=== PATIENT | male | born 1960 | race Caucasian/White ===

== ENCOUNTER 2019-05-09 11:19 | Inpatient (IN) | payer BC, MEDICARE ==
[~2019-05-09] VITALS: Ht 198.1 cm; Wt 163.6 kg
[~2019-05-09 11:19] MED LIST: BUSP30TA3; COU5T PO; FLUT16SP2 NS; GABA-338 PO; LAMO5TAB3 PO; OMEP-84 PO; QUET-1 PO; RISP1TAB3; SIMV5TAB58 PO; TRAM300T23; TRAZ-219
[2019-05-09] MEDS ORDERED: CefTRIAXone 2gm/D5W 50ml 50 ML IV ONE (11:55)
[2019-05-09] MEDS ORDERED: normal saline 1000ML IV soln IV ONE (11:55)
[2019-05-09 12:12] LABS: BASOPHILS # (AUTO) 0.1 X10'3 (0-0.2); BASOPHILS % (AUTO) 0.3 % (0-1); EOSINOPHILS # (AUTO) 0.1 X10'3 (0-0.9); EOSINOPHILS % (AUTO) 0.4 % (0-6); HEMATOCRIT 36.3 % (42.0-52.0); HEMOGLOBIN 12.1 g/dl (14.0-17.9); LYMPHOCYTES # (AUTO) 0.7 X10'3 (1.1-4.8); LYMPHOCYTES % (AUTO) 4.8 % (21-51); MEAN CORPUSCULAR HEMOGLOBIN 30.8 PG (27.0-31.0); MEAN CORPUSCULAR HGB CONC 33.2 g/dL (33.0-36.5); MEAN CORPUSCULAR VOLUME 92.8 FL (78-98); MEAN PLATELET VOLUME 7.5 FL (7.4-10.4); MONOCYTES # (AUTO) 1.4 X10'3 (0-0.9); MONOCYTES % (AUTO) 9.2 % (2-12); NEUTROPHILS # (AUTO) 12.6 X10'3 (1.8-7.7); NEUTROPHILS % (AUTO) 85.3 % (42-75); PLATELET COUNT 277 X10'3 (140-440); RED BLOOD COUNT 3.91 X10'6 (4.70-6.10); RED CELL DISTRIBUTION WIDTH 13.8 % (11.5-14.5); WHITE BLOOD COUNT 14.8 X10'3 (4.5-11.0)
[2019-05-09 12:17] LABS: PARTIAL THROMBOPLASTIN TIME 34 SECONDS (22-32)
[2019-05-09 12:21] LABS: LACTIC SEPSIS 1.5 MMOL/L (0.4-2.0)
[2019-05-09 12:29] LABS: ALANINE AMINOTRANSFERASE 23 U/L (12-78); ALBUMIN 2.7 G/DL (3.4-5.0); ALBUMIN/GLOBULIN RATIO 0.6 (1.1-1.5); ALKALINE PHOSPHATASE 118 IU/L (46-116); ANION GAP 10 (8-16); ASPARTATE AMINO TRANSFERASE 25 U/L (10-37); BILIRUBIN,TOTAL 1.3 MG/DL (0.1-1.0); BLOOD UREA NITROGEN 23 MG/DL (7-18); BUN/CREATININE RATIO 7.3 (5.4-32.0); CALCIUM 8.8 MG/DL (8.5-10.1); CHLORIDE 102 MMOL/L (99-107); CREATININE 3.15 MG/DL (0.60-1.10); ETHANOL < 0.010 GM/DL (0.0-0.010); GLUCOSE 106 MG/DL (70-104); MAGNESIUM 2.3 MG/DL (1.5-2.4); SODIUM 137 MMOL/L (135-145); TOTAL CARBON DIOXIDE 25.3 MMOL/L (24-32); TROPONIN I < 0.04 NG/ML (0.0-0.05); eGFR 20 ML/MIN
[2019-05-09 12:40] LABS: ABG BASE EXCESS -2.7 mmol/L (-2.0-3.0); ABG HCO3 22.1 mmol/L (22.0-26.0); ABG OXYGEN SATURATION 96.3 % (95-98); ABG PCO2 (T) 38.3 mmHg (35.0-45.0); ABG PH (T) 7.379 (7.350-7.450); ABG PO2 (T) 89.3 mmHg (83-108); FCOHb 1.4 % (0.5-1.5); TOTAL HEMOGLOBIN 11.5 G/dl (14.0-17.9)
--- NOTE | 2019-05-09 13:27 | NUR ---
FIRM STOOL SAMPLE COLLECTED AND SENT TO LAB.
[2019-05-09] MEDS ORDERED: normal saline 1000ML IV soln IVB ONE (13:45)
--- NOTE | 2019-05-09 13:48 | NUR ---
PT TAKEN TO CT VIA GURNEY BY TECH.
--- NOTE | 2019-05-09 14:38 | NUR ---
PT HAS LARGE FORMED BM. CHANGE BEDDING. PT'S ARRIVES AT BEDSIDE AND TALKS TO DR SAMANO.
[2019-05-09] MEDS ORDERED: magnesium hydroxide 30ml (MOM) UD suspension PO PRN (14:40)
[2019-05-09] MEDS ORDERED: ondansetron/PF 4mg/2ml inj IV PRN (14:40)
[2019-05-09] MEDS ORDERED: mag hydrox/Alum hydrox/simeth 30ml oral suspension PO PRN (14:40)
[2019-05-09] MEDS ORDERED: acetaminophen 325mg tablet PO PRN ×2 (14:40)
[2019-05-09] MEDS ORDERED: LINA145C PO (15:10)
[2019-05-09] MEDS ORDERED: PANT40TA4 PO (15:10)
[2019-05-09] MEDS ORDERED: NALO25TA PO (15:10)
[2019-05-09] MEDS ORDERED: TRAM50TA2 PO (15:10)
[2019-05-09] MEDS ORDERED: OMEP40CA13 PO (15:10)
[2019-05-09] MEDS ORDERED: QUET-1 PO (15:10)
[2019-05-09] MEDS ORDERED: HYDR50TA65 PO (15:10)
[2019-05-09] MEDS ORDERED: APIX2.5T PO (15:10)
[2019-05-09] MEDS ORDERED: BUSP10TA11 PO (15:10)
[2019-05-09] MEDS ORDERED: LORA1TAB PO (15:10)
[2019-05-09] MEDS ORDERED: LEVO500T2 PO (15:10)
[2019-05-09] MEDS ORDERED: LAMO200T31 PO (15:10)
[2019-05-09] MEDS ORDERED: MIRT15TA PO (15:10)
[2019-05-09] MEDS ORDERED: MOME45CR3 TOP (15:10)
[2019-05-09] MEDS ORDERED: CELE-193 PO (15:10)
[2019-05-09] MEDS ORDERED: ENAL2.5T40 PO (15:10)
[2019-05-09 15:19] LABS: CLARITY,URINE SLIGHTLY CLOUDY (Clear); COLOR,URINE AMBER (Yellow); GLUCOSE, URINE NEGATIVE (Neg); KETONES,URINE NEGATIVE (Neg); LEUKOCYTE ESTERASE ,URINE NEGATIVE (Neg); NITRITES, URINE NEGATIVE (Neg); OCCULT BLOOD,URINE MODERATE (Neg); PH,URINE 7.5 (4.8-8.0); PROTEIN,URINE TRACE mg/dl (Neg); UA COLLECTION TYPE FOLEY CATH
[2019-05-09 15:26] LABS: URINE AMPHETAMINE SCREEN NEGATIVE (Neg); URINE BARBITUATE SCREEN NEGATIVE (Neg); URINE BENZODIAZEPINES SCREEN POSITIVE (Neg); URINE CANNABINOID SCREEN NEGATIVE (Neg); URINE COCAINE SCREEN NEGATIVE (Neg); URINE METHADONE SCREEN NEGATIVE (Neg); URINE OPIATE SCREEN POSITIVE (Neg); URINE PHENCYCLIDINE SCREEN NEGATIVE (Neg)
[2019-05-09 15:37] LABS: COARSE GRANULAR CAST 0-3 /LPF (NEGATIVE); HYALINE CASTS 0-3 /LPF (NEGATIVE); MUCUS STRANDS MANY /LPF (Neg); SQUAMOUS EPITHELIAL CELL,UR FEW /LPF (FEW); TRANSITIONAL EPI CELLS,URINE FEW /HPF
[2019-05-09 15:38] LABS: BACTERIA,URINE NONE SEEN /HPF (Neg); WBC,URINE 0-4 /HPF (0-4)
[2019-05-09 15:39] LABS: CAL OXALATE CRYSTALS 4+ /HPF (NEGATIVE)
[2019-05-09] MEDS ORDERED: BUSP15TA3 PO (15:48)
[2019-05-09] MEDS ORDERED: HYDR-3686 PO (15:48)
[2019-05-09] MEDS ORDERED: ENAL5TAB PO (15:48)
[2019-05-09] MEDS ORDERED: LAMO200T PO (15:48)
[2019-05-09 16:15] VITALS: BP 120/65
--- NOTE | 2019-05-09 16:15 | NUR ---
Patient in room PCU 3016. I have received report from Gina BASSETT and had the opportunity to ask questions and assume patient care.
--- NOTE | 2019-05-09 16:15 | NUR ---
Pt arrived to unit from ED via gurney. pt AOx4, vitals stable.
[2019-05-09] MEDS ORDERED: traMADol 50MG tablet PO PRN (16:25)
[2019-05-09] MEDS: normal saline 1000ml 1,000 ML IV SCH (16:25)
--- NOTE | 2019-05-09 18:00 | NUR ---
Problems reprioritized. Patient report given, questions answered & plan of care reviewed with Kristie BASSETT.
--- NOTE | 2019-05-09 18:00 | NUR ---
Patient in room PCU 3016. I have received report from Gabriel BASSETT and had the opportunity to ask questions and assume patient care.
--- NOTE | 2019-05-09 18:04 | NUR ---
I agree with all of Nadya BASSETT(Orientee's) charting
--- NOTE | 2019-05-09 18:22 | NUR ---
Problems reprioritized. Patient report given, questions answered & plan of care reviewed with DANYELLE Villagran.
[2019-05-09 19:00] VITALS: BP 90/44
[2019-05-09] MEDS: lamoTRIgine 100mg tablet PO SCH (19:33)
[2019-05-09] MEDS: apixaban 2.5mg tablet PO SCH (19:33)
[2019-05-09] MEDS: busPIRone 15mg tablet PO SCH (19:33)
[2019-05-09] MEDS ORDERED: heparin, porcine 5000 units/ml vial SQ SCH (20:00)
[2019-05-09] MEDS: mirtazapine 15mg tablet PO SCH (20:28)
[2019-05-09 23:00] VITALS: BP_SYST 0; BP_SYST 77; BP_SYST 90; BP_DIAS 0; BP_DIAS 46; BP_DIAS 49
[2019-05-09 23:30] VITALS: BP 124/49
[2019-05-09] MEDS: morphine 2 MG/ML inj. syringe IV PRN (23:31)
--- NOTE | 2019-05-10 00:32 | NUR ---
POSITIVE ORTHOSTATIC MD Shirley notified and ordered to not get him out of bed, or the side of the bed, and no more orthostatic blood pressures. I also mentioned low urine output, but Casper mentioned that "he's probably just really dry". will continue to monitor.
[2019-05-10] MEDS: normal saline 1000ml 1,000 ML IV SCH ×3 (00:36→18:37)
[2019-05-10 03:00] VITALS: BP 98/52
[2019-05-10 05:59] LABS: BASOPHILS % (AUTO) 0.3 % (0-1); EOSINOPHILS # (AUTO) 0.1 X10'3 (0-0.9); EOSINOPHILS % (AUTO) 1.6 % (0-6); HEMATOCRIT 30.9 % (42.0-52.0); HEMOGLOBIN 10.5 g/dl (14.0-17.9); LYMPHOCYTES # (AUTO) 1.2 X10'3 (1.1-4.8); LYMPHOCYTES % (AUTO) 14.1 % (21-51); MEAN CORPUSCULAR HEMOGLOBIN 31.7 PG (27.0-31.0); MEAN CORPUSCULAR HGB CONC 33.9 g/dL (33.0-36.5); MEAN CORPUSCULAR VOLUME 93.4 FL (78-98); MEAN PLATELET VOLUME 7.6 FL (7.4-10.4); MONOCYTES # (AUTO) 0.8 X10'3 (0-0.9); MONOCYTES % (AUTO) 9.1 % (2-12); NEUTROPHILS # (AUTO) 6.3 X10'3 (1.8-7.7); NEUTROPHILS % (AUTO) 74.9 % (42-75); PLATELET COUNT 181 X10'3 (140-440); RED BLOOD COUNT 3.31 X10'6 (4.70-6.10); RED CELL DISTRIBUTION WIDTH 13.7 % (11.5-14.5); WHITE BLOOD COUNT 8.4 X10'3 (4.5-11.0)
[2019-05-10 06:00] VITALS: BP 112/61
--- NOTE | 2019-05-10 06:00 | NUR ---
Patient in room PCU 3016. I have received report from Kristie BASSETT and had the opportunity to ask questions and assume patient care.
[2019-05-10 06:17] LABS: ANION GAP 9 (8-16); BLOOD UREA NITROGEN 23 MG/DL (7-18); CALCIUM 8.5 MG/DL (8.5-10.1); CHLORIDE 110 MMOL/L (99-107); CREATININE 1.91 MG/DL (0.60-1.10); GLUCOSE 83 MG/DL (70-104); POTASSIUM 3.9 MMOL/L (3.5-5.1); SODIUM 142 MMOL/L (135-145); TOTAL CARBON DIOXIDE 23.4 MMOL/L (24-32); eGFR 36 ML/MIN
--- NOTE | 2019-05-10 06:21 | NUR ---
Problems reprioritized. Patient report given, questions answered & plan of care reviewed with Gabriel BASSETT.
--- NOTE | 2019-05-10 06:30 | NUR ---
Patient in room PCU 3016a. I have received report from DANYELLE Villagran and had the opportunity to ask questions and assume patient care. Pt alert and awake in bed at this time. All needs met.
[2019-05-10] MEDS: morphine 2 MG/ML inj. syringe IV PRN (06:59)
[2019-05-10] MEDS: lamoTRIgine 100mg tablet PO SCH ×2 (07:46→21:11)
[2019-05-10] MEDS: LORazepam 1 MG tablet PO SCH (07:46)
[2019-05-10] MEDS: quetiapine 100mg tablet PO SCH (07:47)
[2019-05-10] MEDS: busPIRone 15mg tablet PO SCH ×2 (07:47→21:11)
[2019-05-10] MEDS: pantoprazole 40mg Tablet.DR PO SCH (07:47)
[2019-05-10] MEDS: apixaban 2.5mg tablet PO SCH ×2 (07:47→21:11)
[2019-05-10] MEDS ORDERED: NALOXEGOL OXALATE 25 MG PO SCH (08:00)
[2019-05-10] MEDS ORDERED: LINACLOTIDE 145 MCG PO SCH (08:00)
[2019-05-10] MEDS ORDERED: gabapentin 300mg capsule PO ONE (09:15)
--- NOTE | 2019-05-10 09:20 | NUR ---
Paged Dr. Jerez: PAGER ID: [phone] MESSAGE: RE [id number] Valente Blas. New order for [place] 5/325mg and 10/325mg order needs clarification on direction. Thank you. Nadya ariza [phone]
[2019-05-10] MEDS: HYDROcodone/acetaminophen 10/325mg tab PO PRN (09:36)
[2019-05-10 11:00] VITALS: BP 90/45
[2019-05-10] MEDS: HYDROcodone/acetaminophen 5mg/325mg tablet PO PRN ×3 (14:13→23:52)
--- NOTE | 2019-05-10 14:37 | NUR ---
Page sent to Dr Jerez to reconcile medications. PAGER ID: [phone] MESSAGE: re [id number] Valente Blas. Medications Movantik and Linzess on emar, are pts own medication. Pt and family do not wish to continue in the hospital, can you please D/C? Thank you Nadya Vaughan [phone]
[2019-05-10 15:00] VITALS: BP 104/52
[2019-05-10 18:00] VITALS: BP 117/59
--- NOTE | 2019-05-10 18:00 | NUR ---
Problems reprioritized. Patient report given, questions answered & plan of care reviewed with Danielle BASSETT
--- NOTE | 2019-05-10 18:05 | NUR ---
Patient in room PCU 3016. I have received report from DANYELLE Covington and had the opportunity to ask questions and assume patient care.
--- NOTE | 2019-05-10 18:28 | NUR ---
Problems reprioritized. Patient report given, questions answered & plan of care reviewed with DANYELLE Santos.
--- NOTE | 2019-05-10 18:40 | NUR ---
Catrina Covington RN's charting reviewed. I agree with charting.
[2019-05-10] MEDS: gabapentin 300mg capsule PO SCH (21:10)
[2019-05-10] MEDS: amitriptyline 25mg tablet PO SCH (21:11)
[2019-05-10] MEDS: mirtazapine 15mg tablet PO SCH (21:11)
[2019-05-10 22:00] VITALS: BP 126/60
[2019-05-11 02:00] VITALS: BP 110/64
[2019-05-11] MEDS: HYDROcodone/acetaminophen 5mg/325mg tablet PO PRN (04:03)
[2019-05-11] MEDS: normal saline 1000ml 1,000 ML IV SCH ×2 (04:03→13:59)
[2019-05-11 06:00] VITALS: BP 143/78
--- NOTE | 2019-05-11 06:06 | NUR ---
Problems reprioritized. Patient report given, questions answered & plan of care reviewed with DANYELLE Francis.
[2019-05-11 06:10] LABS: BASOPHILS % (AUTO) 0.7 % (0-1); EOSINOPHILS # (AUTO) 0.1 X10'3 (0-0.9); HEMATOCRIT 29.3 % (42.0-52.0); HEMOGLOBIN 9.8 g/dl (14.0-17.9); LYMPHOCYTES # (AUTO) 1.1 X10'3 (1.1-4.8); LYMPHOCYTES % (AUTO) 19.4 % (21-51); MEAN CORPUSCULAR HGB CONC 33.6 g/dL (33.0-36.5); MEAN CORPUSCULAR VOLUME 92.2 FL (78-98); MEAN PLATELET VOLUME 8.2 FL (7.4-10.4); MONOCYTES # (AUTO) 0.5 X10'3 (0-0.9); MONOCYTES % (AUTO) 8.2 % (2-12); NEUTROPHILS % (AUTO) 69.7 % (42-75); PLATELET COUNT 187 X10'3 (140-440); RED BLOOD COUNT 3.17 X10'6 (4.70-6.10); RED CELL DISTRIBUTION WIDTH 13.7 % (11.5-14.5); WHITE BLOOD COUNT 5.7 X10'3 (4.5-11.0)
--- NOTE | 2019-05-11 06:10 | NUR ---
[place]rientee documentation: I have reviewed and agree with all interventions, assessments performed and documented by Mira BASSETT. Medication Administration: For this medication-pass time frame, all medication were reviewed, dispensed, administered and documented per hospital policy.
--- NOTE | 2019-05-11 06:15 | NUR ---
Patient in room PCU 3016. I have received report from Danielle LINDQUIST and Mira Lindquist and had the opportunity to ask questions and assume patient care.
[2019-05-11 06:18] LABS: ANION GAP 10 (8-16); BLOOD UREA NITROGEN 17 MG/DL (7-18); CALCIUM 7.9 MG/DL (8.5-10.1); CHLORIDE 112 MMOL/L (99-107); CREATININE 1.31 MG/DL (0.60-1.10); GLUCOSE 81 MG/DL (70-104); POTASSIUM 3.6 MMOL/L (3.5-5.1); SODIUM 145 MMOL/L (135-145); TOTAL CARBON DIOXIDE 23.5 MMOL/L (24-32); eGFR 56 ML/MIN
[2019-05-11] MEDS: LORazepam 1 MG tablet PO SCH (07:30)
[2019-05-11] MEDS: lamoTRIgine 100mg tablet PO SCH ×2 (07:30→19:40)
[2019-05-11] MEDS: gabapentin 300mg capsule PO SCH ×2 (07:30→19:40)
[2019-05-11] MEDS: apixaban 2.5mg tablet PO SCH ×2 (07:30→19:40)
[2019-05-11] MEDS: pantoprazole 40mg Tablet.DR PO SCH (07:30)
--- NOTE | 2019-05-11 07:30 | NUR ---
education given to patient on pain med regimen trying to find a solution for his constant chronic pain he has he is asking me to talk to MD about increasing his pain meds I explained to him he is getting very strong pain meds and he probably wont increase the amount or frequency anything more than what he is getting might not be safe.
[2019-05-11] MEDS: HYDROcodone/acetaminophen 10/325mg tab PO PRN ×4 (07:31→19:41)
[2019-05-11] MEDS: quetiapine 100mg tablet PO SCH (07:31)
[2019-05-11] MEDS: morphine 2 MG/ML inj. syringe IV PRN ×2 (07:32→11:36)
[2019-05-11] MEDS: busPIRone 15mg tablet PO SCH ×2 (07:33→19:40)
--- NOTE | 2019-05-11 08:00 | NUR ---
at bedside she seems very overwhelmed and distraught she is very concerned on how she will care for him at home I contacted case management and asked if they could go talk with her and talk about her options for him after discharge
[2019-05-11 11:00] VITALS: BP 146/68
--- NOTE | 2019-05-11 13:00 | NUR ---
break nurse took critical per RN he paged the MD telling him about the positive blood cultures
--- NOTE | 2019-05-11 13:07 | NUR ---
PAGER ID: [phone] MESSAGE: KATE [id number] Valente Orourkemanuela: + blood culture drawn 05/09 from IV start, in aerobic bottle, + at 48 hrs; Gram + cocci in clusters. DANYELLE Pulido Ext [id number]
--- NOTE | 2019-05-11 14:00 | NUR ---
pt napping no s/s of distress will continue to monitor
[2019-05-11 15:00] VITALS: BP 165/79
--- NOTE | 2019-05-11 15:43 | NUR ---
I explained to the patient and is and tried educating him on trying to find alternative methods of treating pain other than pharmacologic approached he wants both the morphine and the Mumford and Neurontin regularly I explained that is not a reasonable approach and that I am not calling the doctor to ask for an increase in the pain medicine because there are not many more options then what he is getting in terms of higher dosages MD Jerez is aware and wrote in his dictation that the patient has excessive uncontrolled Neuropathy pain and when the MD came by this morning the patient and his expressed the same concerns he is expressing now.
[2019-05-11] MEDS ORDERED: morphine 4 MG/ML inj SYRINge IV PRN (17:20)
[2019-05-11] MEDS ORDERED: morphine 2 MG/ML inj. syringe IV PRN (17:20)
[2019-05-11] MEDS ORDERED: fluticasone nasal spray 16GM bottle NS PRN (17:20)
[2019-05-11] MEDS ORDERED: oxymetazoline 15 ML nasal spray NS PRN (17:20)
--- NOTE | 2019-05-11 17:21 | NUR ---
called Rusu patient is requesting Flonase and Afrin at night and addressed patients pain issue he increased the amount of breakthrough pain medicine
[2019-05-11 19:00] VITALS: BP 133/63
[2019-05-11] MEDS: mirtazapine 15mg tablet PO SCH (20:46)
[2019-05-11] MEDS: amitriptyline 25mg tablet PO SCH (20:46)
[2019-05-11 23:00] VITALS: BP 113/58
[2019-05-12] MEDS: normal saline 1000ml 1,000 ML IV SCH ×3 (02:41→21:09)
[2019-05-12 03:00] VITALS: BP 91/64
[2019-05-12 05:14] LABS: BASOPHILS % (AUTO) 0.5 % (0-1); EOSINOPHILS # (AUTO) 0.1 X10'3 (0-0.9); EOSINOPHILS % (AUTO) 1.3 % (0-6); HEMATOCRIT 32.1 % (42.0-52.0); HEMOGLOBIN 10.9 g/dl (14.0-17.9); LYMPHOCYTES # (AUTO) 0.9 X10'3 (1.1-4.8); LYMPHOCYTES % (AUTO) 14.4 % (21-51); MEAN CORPUSCULAR HEMOGLOBIN 31.2 PG (27.0-31.0); MEAN CORPUSCULAR HGB CONC 33.9 g/dL (33.0-36.5); MEAN CORPUSCULAR VOLUME 92.1 FL (78-98); MEAN PLATELET VOLUME 7.6 FL (7.4-10.4); MONOCYTES # (AUTO) 0.6 X10'3 (0-0.9); MONOCYTES % (AUTO) 9.2 % (2-12); NEUTROPHILS # (AUTO) 4.8 X10'3 (1.8-7.7); NEUTROPHILS % (AUTO) 74.6 % (42-75); PLATELET COUNT 221 X10'3 (140-440); RED BLOOD COUNT 3.49 X10'6 (4.70-6.10); RED CELL DISTRIBUTION WIDTH 13.6 % (11.5-14.5); WHITE BLOOD COUNT 6.4 X10'3 (4.5-11.0)
[2019-05-12 05:46] LABS: ALBUMIN 2.3 G/DL (3.4-5.0); ANION GAP 9 (8-16); BLOOD UREA NITROGEN 10 MG/DL (7-18); BUN/CREATININE RATIO 8.8 (5.4-32.0); CALCIUM 8.2 MG/DL (8.5-10.1); CHLORIDE 112 MMOL/L (99-107); CREATININE 1.14 MG/DL (0.60-1.10); GLUCOSE 89 MG/DL (70-104); SODIUM 146 MMOL/L (135-145); TOTAL CARBON DIOXIDE 25.3 MMOL/L (24-32); eGFR 66 ML/MIN
[2019-05-12 06:00] VITALS: BP 120/71
--- NOTE | 2019-05-12 06:14 | NUR ---
Problems reprioritized. Patient report given, questions answered & plan of care reviewed with Maryanne BASSETT.
--- NOTE | 2019-05-12 06:40 | NUR ---
Patient in room PCU 3016. I have received report from Barbara BASSETT and had the opportunity to ask questions and assume patient care.
[2019-05-12] MEDS: apixaban 2.5mg tablet PO SCH ×2 (08:00→19:52)
--- NOTE | 2019-05-12 08:30 | NUR ---
PAGER ID: [phone] MESSAGE: [id number] Arley Blas. Episode of mihaela blood in stool this AM. No c/o abd/rectal pain. Holding eliquis. Just an FYI! Fredi [facility] [phone]
[2019-05-12] MEDS: gabapentin 300mg capsule PO SCH ×2 (08:41→19:52)
[2019-05-12] MEDS: busPIRone 15mg tablet PO SCH ×2 (08:41→19:49)
[2019-05-12] MEDS: pantoprazole 40mg Tablet.DR PO SCH (08:41)
[2019-05-12] MEDS: quetiapine 100mg tablet PO SCH (08:41)
[2019-05-12] MEDS: lamoTRIgine 100mg tablet PO SCH ×2 (08:42→19:51)
[2019-05-12] MEDS: LORazepam 1 MG tablet PO SCH (08:42)
[2019-05-12] MEDS ORDERED: GABA300C PO (10:10)
[2019-05-12] MEDS ORDERED: DESV50TA PO (10:51)
[2019-05-12 11:00] VITALS: BP 115/63
[2019-05-12 11:36] LABS: HEMATOCRIT 31.2 % (42.0-52.0); HEMOGLOBIN 10.5 g/dl (14.0-17.9); MEAN CORPUSCULAR HGB CONC 33.6 g/dL (33.0-36.5); MEAN CORPUSCULAR VOLUME 92.5 FL (78-98); MEAN PLATELET VOLUME 7.5 FL (7.4-10.4); PLATELET COUNT 217 X10'3 (140-440); RED BLOOD COUNT 3.37 X10'6 (4.70-6.10); RED CELL DISTRIBUTION WIDTH 13.8 % (11.5-14.5); WHITE BLOOD COUNT 6.8 X10'3 (4.5-11.0)
[2019-05-12] MEDS: HYDROcodone/acetaminophen 10/325mg tab PO PRN ×2 (13:21→19:51)
[2019-05-12 15:00] VITALS: BP 144/86
[2019-05-12 18:00] VITALS: BP 143/87
--- NOTE | 2019-05-12 18:10 | NUR ---
Problems reprioritized. Patient report given, questions answered & plan of care reviewed with Margaret RN, Marcia RN, and Student.
--- NOTE | 2019-05-12 18:21 | NUR ---
Patient in room PCU 3016. I have received report from DANYELLE Elliott and had the opportunity to ask questions and assume patient care.
[2019-05-12] MEDS: amitriptyline 25mg tablet PO SCH (21:10)
[2019-05-12] MEDS: mirtazapine 15mg tablet PO SCH (21:11)
[2019-05-12 22:00] VITALS: BP 106/61
[2019-05-13 02:00] VITALS: BP 106/76
--- NOTE | 2019-05-13 05:16 | NUR ---
Student Medication Administration: For this medication-pass time frame, all medication were reviewed, dispensed, administered and documented per hospital policy by Asha ROY. Student documentation: I have reviewed and agree with all interventions, assessments performed and documented by Asha ROY.
--- NOTE | 2019-05-13 05:17 | NUR ---
[place] Medication Administration: For this medication-pass time frame, all medication were reviewed, dispensed, administered and documented per hospital policy by Marcia BASSETT. [place]ee documentation: I have reviewed and agree with all interventions, assessments performed and documented by Marcia BASSETT.
[2019-05-13 06:00] VITALS: BP 150/87
[2019-05-13 06:17] LABS: ALBUMIN 2.2 G/DL (3.4-5.0); ANION GAP 8 (8-16); BASOPHILS % (AUTO) 0.6 % (0-1); BLOOD UREA NITROGEN 7 MG/DL (7-18); BUN/CREATININE RATIO 7.1 (5.4-32.0); CALCIUM 8.2 MG/DL (8.5-10.1); CHLORIDE 112 MMOL/L (99-107); CREATININE 0.98 MG/DL (0.60-1.10); EOSINOPHILS # (AUTO) 0.1 X10'3 (0-0.9); EOSINOPHILS % (AUTO) 1.8 % (0-6); GLUCOSE 87 MG/DL (70-104); HEMATOCRIT 30.2 % (42.0-52.0); HEMOGLOBIN 10.4 g/dl (14.0-17.9); LYMPHOCYTES # (AUTO) 0.8 X10'3 (1.1-4.8); LYMPHOCYTES % (AUTO) 17.9 % (21-51); MEAN CORPUSCULAR HEMOGLOBIN 31.8 PG (27.0-31.0); MEAN CORPUSCULAR HGB CONC 34.6 g/dL (33.0-36.5); MEAN CORPUSCULAR VOLUME 91.9 FL (78-98); MEAN PLATELET VOLUME 7.9 FL (7.4-10.4); MONOCYTES # (AUTO) 0.4 X10'3 (0-0.9); MONOCYTES % (AUTO) 9.3 % (2-12); NEUTROPHILS # (AUTO) 3.2 X10'3 (1.8-7.7); NEUTROPHILS % (AUTO) 70.4 % (42-75); PLATELET COUNT 210 X10'3 (140-440); POTASSIUM 3.6 MMOL/L (3.5-5.1); RED BLOOD COUNT 3.28 X10'6 (4.70-6.10); RED CELL DISTRIBUTION WIDTH 13.5 % (11.5-14.5); SODIUM 147 MMOL/L (135-145); TOTAL CARBON DIOXIDE 27.3 MMOL/L (24-32); WHITE BLOOD COUNT 4.6 X10'3 (4.5-11.0); eGFR 78 ML/MIN
--- NOTE | 2019-05-13 06:18 | NUR ---
Problems reprioritized. Patient report given, questions answered & plan of care reviewed with DANYELLE Elliott.
--- NOTE | 2019-05-13 06:24 | NUR ---
Patient in room PCU 3016. I have received report from Marcia BASSETT and Margaret BASSETT and had the opportunity to ask questions and assume patient care.
[2019-05-13] MEDS: lamoTRIgine 100mg tablet PO SCH (07:48)
[2019-05-13] MEDS: LORazepam 1 MG tablet PO SCH (07:48)
[2019-05-13] MEDS: pantoprazole 40mg Tablet.DR PO SCH (07:48)
[2019-05-13] MEDS: busPIRone 15mg tablet PO SCH (07:48)
[2019-05-13] MEDS: apixaban 2.5mg tablet PO SCH (07:48)
[2019-05-13] MEDS: gabapentin 300mg capsule PO SCH (07:49)
[2019-05-13] MEDS: quetiapine 100mg tablet PO SCH (07:49)
[2019-05-13] MEDS: HYDROcodone/acetaminophen 10/325mg tab PO PRN (07:53)
[2019-05-13] MEDS: normal saline 1000ml 1,000 ML IV SCH (07:58)
--- NOTE | 2019-05-13 10:36 | NUR ---
Problems reprioritized. Patient report given, questions answered & plan of care reviewed with Julieth BASSETT from [facility].
--- NOTE | 2019-05-13 11:15 | NUR ---
Stable for transfer to [facility] per MD orders. Report called to Julieth BASSETT from [facility]. PIV discontinued; cannula intact. Discharge packet and belongings sent with patient. Transferred to [facility] via wheelchair accompanied by .
== END 2019-05-13 11:15 | DRG 682 ==
LOC: ER 11:20 → PCU 3S 16:32 → CMPBEDREQ 19:43
PROVIDERS: ADMIT Internal Medicine; ATTEND Internal Medicine
PROC: 5A09357 Assistance with Respiratory Ventilation, Less than 24 Consecutive Hours, Continuous Positive Airway Pressure (ICD-10-PCS; principal; 2019-05-09)
PROC: 5A09357 Assistance with Respiratory Ventilation, Less than 24 Consecutive Hours, Continuous Positive Airway Pressure (ICD-10-PCS; 2019-05-10)
PROC: 5A09357 Assistance with Respiratory Ventilation, Less than 24 Consecutive Hours, Continuous Positive Airway Pressure (ICD-10-PCS; 2019-05-12)
DX: N17.9 Acute kidney failure, unspecified (principal); G93.41 Metabolic encephalopathy; R57.1 Hypovolemic shock; Z68.41 Body mass index [BMI] 40.0-44.9, adult; E78.00 Pure hypercholesterolemia, unspecified; E66.01 Morbid (severe) obesity due to excess calories; F31.9 Bipolar disorder, unspecified; G62.9 Polyneuropathy, unspecified; D64.9 Anemia, unspecified; G47.30 Sleep apnea, unspecified; K59.00 Constipation, unspecified; Z96.619 Presence of unspecified artificial shoulder joint; Z96.653 Presence of artificial knee joint, bilateral; F41.9 Anxiety disorder, unspecified; G47.00 Insomnia, unspecified; G89.29 Other chronic pain; R19.7 Diarrhea, unspecified; Z87.891 Personal history of nicotine dependence; Z88.2 Allergy status to sulfonamides; Z79.899 Other long term (current) drug therapy; Z86.718 Personal history of other venous thrombosis and embolism; Z79.01 Long term (current) use of anticoagulants
CPT/HCPCS: 36415; 36600; 70450; 71045; 74176; 76775; 80048; 80053; 80305; 80320; 81001; 82140; 82803; 83605; 83735; 84145; 84484; 85018; 85025; 85027; 85610; 85730; 87040; 87045; 87046; 87077; 87081; 87186; 93005; 97110; 97116; 97161; 97530; 99291; G0378; J0696; J2270; J7030

== ENCOUNTER 2025-04-09 10:40 | Inpatient (IN) | payer BC, MEDICARE ==
[~2025-04-09] VITALS: Ht 200.7 cm; Wt 186.3 kg
[~2025-04-09 10:40] MED LIST changes: +APIX2.5T PO; +BUSP15TA3 PO; -BUSP30TA3; -COU5T PO; +DESV50TA PO; -FLUT16SP2 NS; -GABA-338 PO; +GABA300C PO; +HYDR-3686 PO; +LAMO200T10 PO; -LAMO5TAB3 PO; +LINA145C PO; +LORA1TAB PO; +MIRT-142 PO; +MOME45CR3 TOP; -OMEP-84 PO; +PANT40TA54 PO; -RISP1TAB3; -SIMV5TAB58 PO; -TRAM300T23; +TRAM50TA2 PO; -TRAZ-219
--- NOTE | 2025-04-09 10:50 | ELECTROCARDIOGRAPH REPORT ---
[facility] Test Date: 2025-04-09 Test Time: 10:48:21 Pat Name: NILDA MONTILLA Department: [facility]- Patient ID: [facility]-[id number] Room: Gender: M Hand Grinder: : [id number] Requested By: GEORGE ROBBINS Order Number: [id number] Reading MD: Measurements Intervals [place] Rate: 65 P: 0 DC: 0 QRS: 16 QRSD: 106 T: 49 QT: 430 QTc: 448 Interpretive Statements Atrial fibrillation Minimal ST elevation, lateral leads Baseline wander in lead(s) II,III,aVF Please click the below link to view image of tracing.
--- NOTE | 2025-04-09 11:13 | RADIOLOGY REPORT ---
EXAM: DI CHEST,SINGLE VIEW HISTORY: CP COMPARISON: None TECHNIQUE: Portable upright AP view of the chest was performed. FINDINGS: There is central pulmonary vascular congestion. No pneumothorax or consolidative infiltrates. The hea rt is enlarged. There is thoracic degenerative disc disease. IMPRESSION: Cardiomegaly and pulmonary vascular congestion. The lungs are otherwise clear.
--- NOTE | 2025-04-09 11:20 | Physician Documentation ---
History of Present Illness ~ Chief Complaint: Weakness Stated Complaint: WEAKNESS Time Seen by MD: 10:45 OK to notify your PCP?: Yes (She) Primary Medical Doctor: No PMD HPI This is a 64-year-old gentleman with a hostile medical comorbidities including AFib, hypertension, comes in for evaluation of generalized weakness for the last three weeks. No obvious trigger provocation. Did not have a diagnosis of pneumonia two weeks ago, received treatment. He states that he is generally weak, unable to perform activities of daily living, and feels very slow to answer in very confused. He is slow to process with a said to him. However he is alert and oriented x4 if you allow him for time to think and process. Denies any fever, chills, chest pain, difficulty breathing, nausea, vomiting, diarrhea, abdominal pain. Additional information provided by . Apparently the gentleman actually had his pneumonia in October of this year, he had two hospitalizations for acute encephalopathy and C diff since then, he has been getting progressively worse. Despite of multiple hospitalizations at [facility], he is not improving. Normally he resides in a lift chair. For the last week he has not been able to even prop himself up to has a bed pen under him. Today he was not able to even follow commands from his to put a bed grover under him at all. He also complains of bilateral lower extremity pain. He apparently has a pressure wound that is gradually improving on his right lower extremity. also suspects that he has a pressure wound on his bottom. Medication Reconciliation Allergies: Coded Allergies: Sulfa (Sulfonamide Antibiotics) (Verified Allergy, Unknown, 04/16/15) Scheduled Apixaban (Eliquis), 1 TAB PO Q12H, (Reported) Buspirone HCl (Buspirone HCl), 2 TAB PO Q12H, (Reported) Desvenlafaxine Succinate (Pristiq ER), 1 TAB PO DAILY Gabapentin (Neurontin), 600 MG PO BID Hydroxyzine Hcl (Atarax), 25 MG PO Q8H, (Reported) Lamotrigine (Lamotrigine), 2 TAB PO Q12H, (Reported) Linaclotide (Linzess), 1 CAP PO DAILY, (Reported) Lorazepam* (Ativan*), 1 TAB PO DAILY, (Reported) Mirtazapine (Remeron), 1 TAB PO HS, (Reported) Mometasone Furoate (Mometasone Furoate), 1 APPLIC TOP DAILY, (Reported) Pantoprazole Sodium (Pantoprazole Sodium), 1 TAB PO DAILY, (Reported) Quetiapine Fumarate* (Seroquel*), 500 TAB PO DAILY, (Reported) Scheduled PRN Tramadol HCl (Tramadol HCl), 1 TABLET PO Q6H PRN for moderate pain 4-6, (Reported) Past Medical History Past Medical History: Peripheral Neuropathy, High Cholesterol, *PULMONARY*, Chronic Pain, Extremity Fracture, Bipolar Past Surgical History: orthopedic surgeries, other Other Past Surgical History: Bilateral Knee Replacement, LE Bilat Neuropathy, cervical sx Alcohol Use: None Drug Use: none Lives with: Spouse Lives In: Home Occupation: disabled Review of Systems ROS 10 point review of systems was performed and unless noted above in HPI is negative for acute process/complaint. Physical Exam Vital Signs: Temperature: 98.1, Source: Oral, Heart Rate: 65, Respiratory Rate: 16, BP: 133/67, Pulse Oximetry: 93, Weight: 186.350 Physical Exam GENERAL: Awake, alert, oriented, GCS 15, no apparent distress, non-toxic appea ring, answers questions, follows commands appropriately. HEENT: Atraumatic, normocephalic, pupils equal, extraocular muscles intact, sclerae anicteric, mucus membranes moist, oropharynx is clear, no stridor. NECK: supple, full active range of motion, trachea midline, no thyromegaly, no lymphadenopathy, no JVD. CARDIOVASCULAR: regular rate/rhythm, no murmurs/gallops/rubs, Pulses are 2+ in all extremities and symmetric. Capillary refill less than 2 seconds. PULMONARY: Nonlabored, good air movement ,no respiratory distress, speaking in full sentences, clear to auscultation bilaterally, no wheezing, no ronchi, no rales, no accessory muscle use. GASTROINTESTINAL: Soft, non-tender, non-distended, normal active bowel sounds, no organomegaly, no pulsatile masses, no CVA tenderness. NEUROLOGIC: Lucid with normal mental status. Normal facial symmetry. Moves all extremities symmetrically and with purpose. No truncal ataxia. Speech is fluid without evidence of dysarthria or aphasia, no focal deficits appreciated. MUSCULOSKELETAL: There is full range of motion of all extremities. There is no joint pain or joint swelling or joint erythema. There is no muscle pain or tenderness or swelling. EXTREMITIES: warm, well-perfused, no cyanosis, no clubbing, no edema, no acute deformities. Skin: warm, dry, no rashes or lesions, no jaundice, no petechiae orpurpura. No ecchymosis. PSYCHIATRIC: Normal affect, normal insight, normal concentration. Focused exam: [] Progress Results/Orders Results/Orders Orders - GEORGE ROBBINS DO Chest,Single View (04/09/25 10:43) Monitor (04/09/25 10:43) Saline Lock (04/09/25 10:43) Oxygen (04/09/25 10:43) Hs Troponin I W Calculations (04/09/25 13:43) Ct Head (04/09/25 12:06) Cult Urine + [place] [address] (04/09/25 13:13) Completed Orders - GEORGE ROBBINS DO Chest,Single View (04/09/25 10:43) Cbc/Diff (04/09/25 10:43) BMP (04/09/25 10:43) PBNP (04/09/25 10:43) Electrocardiogram (04/09/25 10:43) Hs Troponin I W Calculations (04/09/25 10:43) Hs Troponin I W Calculations (04/09/25 12:43) ESR (04/09/25 11:13) Ct Head (04/09/25 12:06) C-Reactive Protein (04/09/25 11:09) Free T4 (04/09/25 11:09) MG (04/09/25 11:09) PHOS (04/09/25 11:09) TSH (04/09/25 11:09) Acetaminophen 325mg Tablet (Tylenol Tabl (04/09/25 11:35) CK (04/09/25 11:09) Ua W/Microscopic, Cult If Ind (04/09/25 13:01) Medications Received in ER Medications (Trade) Dose Ordered Sig/Penelope Route PRN Reason Start Time Stop Time Status Last Admin Dose Admin (Tylenol tablet) 650 mg ONCE ONCE PO 04/09/25 11:35 04/09/25 11:36 DC 04/09/25 11:48 650 MG Vital Signs 04/09/25 04/09/25 04/09/25 04/09/25 10:44 11:14 11:14 12:50 Temp 98.1 Pulse 65 61 64 Resp 16 16 10 10 B/P (MAP) 133/67 164/86 (112) 164/88 (113) Pulse Ox 93 95 96 Laboratory Tests Test 04/09/25 11:09 04/09/25 12:49 04/09/25 13:01 White Blood Count 4.0 L Red Blood Count 4.78 Hemoglobin 12.9 L Hematocrit 39.8 L Mean Corpuscular Volume 83.3 Mean Corpuscular Hemoglobin 27.0 Mean Corpuscular Hemoglobin Concent 32.4 L Red Cell Distribution Width 15.9 H Platelet Count 125 L Mean Platelet Volume 8.0 Neutrophils (%) (Auto) 68.1 Lymphocytes (%) (Auto) 20.9 L Monocytes (%) (Auto) 8.3 Eosinophils (%) (Auto) 2.1 Basophils (%) (Auto) 0.6 Neutrophils # (Auto) 2.7 Lymphocytes # (Auto) 0.8 L Monocytes # (Auto) 0.3 Eosinophils # (Auto) 0.1 Basophils # (Auto) 0.0 CBC Comment Erythrocyte Sedimentation Rate 14 Sodium Level 145 Potassium Level 3.8 Chloride Level 110 H Carbon Dioxide Level 26.7 Anion Gap 8 Blood Urea Nitrogen 14 Creatinine 1.28 H Estimated GFR/1.73 m2 57 BUN/Creatinine Ratio 10.9 Glucose Level 98 Calcium Level 8.3 L Phosphorus Level 3.1 Magnesium Level 2.0 Total Creatine Kinase 83 Troponin I High Sensitivity 7 7 C-Reactive Protein 1.17 H Pro-B-Type Natriuretic Peptide 144 H Albumin 3.4 Thyroid Stimulating Hormone (TSH) 0.95 Free Thyroxine 0.89 Chemistry Comments Troponin I High Sens Percent Delta 0 Troponin I Hi Sens Absolute Change 0 Urine Specimen Description Non-specified Urine Color Yellow Urine Clarity Clear Urine pH 6.0 Urine Specific [place] 1.025 Urine Protein Negative Urine Glucose (UA) Negative Urine Ketones Negative Urine Occult Blood Trace-intact Urine Nitrite Negative Urine Bilirubin Negative Urine Urobilinogen 0.2 Urine Leukocyte Esterase Negative Urine RBC 3-10 Urine WBC 5-10 H Urine Squamous Epithelial Cells Few Urine Bacteria Few Urine Culture Indicated Indicated Volume Urine Centrifuged 10 ml Urine Comment Medical Decision Making Findings Facility Status: ED Holds, E process The plan was discussed with the patient, who demonstrates clear understanding of the plan and is in agreement with the plan unless otherwise noted in the chart. All questions have been answered, all concerns were addressed unless otherwise documented. I was available throughout their ED stay for frequent reassessment and questions. Differential Diagnoses (considered and possible or likely): [Dehydration, electrolyte derangement, urinary tract infection, pneumonia, occult bacteremia, acute kidney injury with a result in medication hemo concentration, less likely acute intracranial process such as bleed or tumor, ACS, CHF has been considerably as well.] ??Differential Diagnoses (considered and unlikely, not requiring evaluation currently): [No evidence of lateralizing signs to suspect a stroke] MDM Data Please see [facility] for the following: Independent Historians and external Records Review. Historian: [Patient] Independent Historians: ?[, record review] Medication Management: [Reviewed medication list] Social History and determinants: [Reviewed] Please see the body of the note for the following: Any independent interpretations of ECG, imaging studies. All vitals signs/haemodynamics, ordered tests were independently reviewed and interpreted by myself. Nursing triage complaint and vitals reviewed, additional nursing notes were reviewed as available and I agree unless otherwise noted or documented in contradiction in the chart Vital Signs: Independently reviewed Labs: Independently interpreted Imaging: Independently interpreted Old Medical Records: Independently reviewed, see [facility] for relevant summary and information Pulse Oximetry: [96%] interpreted as [normal on room air] by me [Co Supervisor [employer]: [Regular Rate, Regular rhythm, no ectopy, NSR] reviewed and interpreted by me] Additionally notably showing: [Hemodynamics reviewed. The patient isn't febrile, not tachycardic, no evidence of hypotension respiratory distress. CBC shows very mild leukopenia of 4.0, decreased platelets at 125. ESR is normal at 14. Metabolic panel shows slight NEVIN. CRP is elevated. Troponin is negative. Thyroid panel is normal. UA is mildly concerning for UTI but given presenting symptoms he can benefit from antibiotics. Chest x-ray is unremarkable. CT shows no acute disease. ] Tests considered but not ordered include: [MRI brain can be done on an inpatient basis] Social Determinants of Health Impact: Patient was [facility] [place] to healthcare due to below par ratio of patient to medical providers. [] Comorbid Conditions Impacting Present Evaluation and Care/Treatment: [Multiple, see list] Management Discussions with other Healthcare Providers: [Hospitalist regarding admission] Treatment and Disposition Medication Management (Given or considered): []. See EMR for details Consideration for Hospitalization/Escalation/Deescalation of Care: Admission for observation has been considered, echo and appears to be necessary for further w orkup of his progressive generalized weakness and confusion. ?ED Course:?[No deterioration or improvement] ?Shared decision making:?[] Code status:?FULL Please see the full Electronic Medical Record for full details of nursing documentation, medications list, other records of complete past medical history and conditions, vital signs, laboratory studies, and any radiologic study interpretations by radiologists. Portions of this note were completed using [employer] dictation software and as a result there may exist minor errors in spelling. I have reviewed elements of past family and social history and agree as included in note. Departure Disposition: 09 ADMITTED INPATIENT Impression: Primary Impression: Generalized weakness Additional Impressions: Confusion Urinary tract infection Condition: Stable Referrals: NO PRIMARY CARE PROVIDER (PCP) Signature Scribe Signature: No scribe Attestation: This note accurately reflects clinical decisions, work performed by myself, DO ROSENDO Hernandez NICHOLAS M DO Apr 09, 2025 11:20
[2025-04-09 11:25] LABS: MEAN PLATELET VOLUME 8.0 FL (7.4-10.4); RED CELL DISTRIBUTION WIDTH 15.9 % (11.5-14.5)
[2025-04-09 11:49] LABS: CREATININE 1.28 MG/DL (0.60-1.10); PHOSPHORUS 3.1 MG/DL (2.3-4.5); PRO BRAIN NATRIURETIC PEPTIDE 144 PG/ML (0-125); TOTAL CARBON DIOXIDE 26.7 MMOL/L (24-32); eCRCL 77 ML/MIN; eGFR 57 ML/MIN
--- NOTE | 2025-04-09 12:19 | RADIOLOGY REPORT ---
EXAM: CT CT HEAD INDICATION: Dizziness, altered mental status TECHNIQUE: CT of the head without intravenous contrast. Coronal and sagittal reformatted images are s ubmitted. Radiation Dose : 1. Head: CT Dose: CTDI volume is 70 mGy. Dose-length product is 1421 0.3 mGy*cm The dose indicators for CT are the volume Computed Tomography (CT) Dose Index (CTDIvol) and the Dose Length Product (DLP), and are measured in units of mGy and mGy-cm, respectively. These indicators are not patient dose, but values generated from the CT scanner acquisition factors. The report includes radiation exposure data for exposures received during this examination. All CT scans at this medical facility are performed using dose modulation techniques as appropriate to a performed exam including the following: Automated exposure control was utilized; adjustment of the MA and/or KV according to patient size; and use of iterative reconstruction technique. COMPARISON: None FINDINGS: There is no evidence of acute intracranial hemorrhage, extra-axial collection, mass effect, midline s hift, herniation or hydrocephalus. The ventricles, sulci and cisterns are age appropriate. The alcaraz-white differentiation is intact. There is mucosal thickening in the left maxillary sinus. Mild mucosal thickening in the right maxilla ry sinus. The mastoid air cells are clear. No depressed calvarial fracture. The surrounding soft tissues are unremarkable. IMPRESSION: 1. No evidence of acute intracranial abnormality.
[2025-04-09 13:07] LABS: LEUKOCYTE ESTERASE ,URINE NEGATIVE (Neg); NITRITES, URINE NEGATIVE (Neg); OCCULT BLOOD,URINE TRACE-INTACT (Neg)
[2025-04-09 13:12] LABS: UA COLLECTION TYPE NON-SPECIFIED
[2025-04-09 13:13] LABS: SQUAMOUS EPITHELIAL CELL,UR FEW /LPF (FEW)
[2025-04-09] MEDS: CefTRIAXone/D5W-Rocephin 1gm 50 ML IV ONE (13:59)
[2025-04-09] MEDS: morphine 4 MG/ML inj SYRINge IV ONE (14:25)
[2025-04-09] MEDS ORDERED: NALO25TA4 PO (14:43)
[2025-04-09] MEDS ORDERED: HYDR2TAB7 PO (14:43)
[2025-04-09] MEDS ORDERED: ROSU10TA72 PO (14:43)
[2025-04-09] MEDS ORDERED: BUDE10.3 INH (14:43)
[2025-04-09] MEDS ORDERED: ALBU0.63 (14:43)
[2025-04-09] MEDS ORDERED: TAMSULOSIN PO (14:43)
[2025-04-09] MEDS ORDERED: DIAZ5TAB5 PO (14:43)
[2025-04-09] MEDS ORDERED: METO-395 PO (14:43)
[2025-04-09] MEDS ORDERED: HYDROcodone/acetaminophen 10/325mg tab PO PRN (14:45)
[2025-04-09] MEDS ORDERED: potassium Cl 40MEQ/1/2NS 520ml 520 ML IV PRN (14:45)
[2025-04-09] MEDS: normal saline 1000ml 1,000 ML IV SCH (14:45)
[2025-04-09] MEDS ORDERED: mag hydrox/Alum hydrox/simeth 30ml oral suspension PO PRN (14:45)
[2025-04-09] MEDS ORDERED: magnesium sulf-water 2g/50mL 50 ML IV PRN (14:45)
[2025-04-09] MEDS ORDERED: ondansetron/PF 4mg/2ml inj IV PRN (14:45)
[2025-04-09] MEDS ORDERED: HYDROcodone/acetaminophen 5mg/325mg tablet PO PRN (14:45)
[2025-04-09] MEDS ORDERED: magnesium Cl slow-release 64mg tablet PO PRN (14:45)
[2025-04-09] MEDS ORDERED: magnesium hydroxide 30ml (MOM) UD suspension PO PRN (14:45)
[2025-04-09] MEDS ORDERED: magnesium sulf-water 4G/100mL 100 ML IV PRN (14:45)
[2025-04-09] MEDS ORDERED: potassium Cl 20 mEq SR tablet PO PRN ×2 (14:45)
--- NOTE | 2025-04-09 16:22 | HISTORY AND PHYSICAL-Residence ---
History & Physical Providers to CC Resident Creating Document: CANDIDOCHARY, RES ~ History of Present Illness Primary Medical Doctor: No PMD Reason for Admit\Complaint: weakness and confusion History of Present Illness 64 years old male patient with a history of peripheral neuropathy of both feet presented to ED with weakness and confusion from past eight weeks and which is on and off but from past few days to exacerbated. patient feel tired while sleeping and sitting According to his patient was wheelchair-bound you wakes ago you to get up from the wheelchair using his hand but now he is unable to do because of weakness. Patient is wheelchair-bound from last four years after undergoing knee surgery for bilateral infected knee, this October 2024 he was admitted in the hospital for pneumonia for 3 days and four weeks later during december 2024 develop encephalopathy he had two hospitalizations for acute encephalopathy and in mid January he was hospitalized for C diff for three days after that patient developed significant weakness and confusion/fogginess. Patient had history of fall we will a suspected broken leg but home x-ray by Dr. Acharya rules out fracture, patient also has a sore on right posterior leg and patient is also expecting about sore. Patient denies no fever, chills, nausea, vomiting Allergies: Coded Allergies: Sulfa (Sulfonamide Antibiotics) (Verified Allergy, Unknown, 04/16/15) daptomycin (Verified Allergy, Unknown, 04/09/25) piperacillin (Verified Allergy, Unknown, 04/09/25) Home Medications Home Medications Active Pristiq ER (Desvenlafaxine Succinate) 50 Mg Tab.er.24h 1 Tab PO DAILY 30 Days Neurontin (Gabapentin) 300 Mg Capsule 600 Mg PO BID 60 Days Reported Albuterol Sulfate (Albuterol) 0.63 Mg/3 Ml Vial.neb 3 Ml Q4H PRN Movantik (Naloxegol Oxalate) 25 Mg Tablet 1 Tab PO QAM [Tamsulosin] 0.4 1 PO HS Hydromorphone Hcl 2 Mg Tablet 1 Tab PO TID PRN Breyna 80-4.5 Mcg Inhaler (Budesonide/Formoterol Fumarate) 80 Mcg-4.5 Mcg/Actuation Hfa.aer.ad 2 Puffs INH BID Rosuvastatin Calcium 10 Mg Tablet 1 Tab PO DAILY Diazepam 5 Mg Tablet 1.5 Tab PO DAILY Metoprolol Succinate 25 Mg Tab.sr.24h 1 Tab PO DAILY Lamotrigine 200 Mg Tablet 2 Tab PO Q12H 30 Days Atarax (Hydroxyzine Hcl) 25 Mg Tablet 25 Mg PO Q8H Buspirone HCl 15 Mg Tablet 2 Tab PO Q12H 30 Days Tramadol HCl 50 Mg Tablet 1 Tablet PO Q6H PRN Seroquel* (Quetiapine Fumarate) 100 Mg Tablet 500 Tab PO DAILY Pantoprazole Sodium 40 Mg Tablet.dr 1 Tab PO DAILY 30 Days Mometasone Furoate 45 Gm Cream..g. 1 Applic TOP DAILY 30 Days Remeron (Mirtazapine) 15 Mg Tablet 1 Tab PO HS 30 Days Ativan* (Lorazepam) 1 Mg Tablet 1 Tab PO DAILY 30 Days Linzess (Linaclotide) 145 Mcg Capsule 1 Cap PO DAILY 30 Days Eliquis (Apixaban) 2.5 Mg Tablet 1 Tab PO Q12H 30 Days Past Medical History Past Medical History Peripheral neuropathy of both feet Bipolar disorder Septic arthritis of bilateral knee Past Surgical History Surgical History Comment Shoulder surgery eight years ago Bariatric sleeve Sinus surgery C2-C4 cervical surgery Past Social History Smoking: Non-Smoker Alcohol Use: None Drug Use: None Lives with: Spouse Lives In: Home Occupation: disabled ROS Constitutional: Reports: weakness Eyes: Reports: no symptoms reported ENT: Reports: no symptoms reported Cardiovascular: Reports: edema Gastrointestinal: Reports: no symptoms reported Genitourinary: Reports: no symptoms reported Male Genitalia: Reports: no symptoms reported Hematologic/Lymphatic: Reports: no symptoms reported Psychiatric: Reports: no symptoms reported Exam Vitals: Vital Signs Date Time Temp Pulse Resp B/P (MAP) Pulse Ox O2 Delivery O2 Flow Rate FiO2 04/09/25 15:56 65 11 123/55 (77) 96 04/09/25 10:44 98.1 General: wheel chair bound , weak ,Drowsy, not confused, not agitated, not in acute distress HEENT: Conjunctivae are pink, sclera clear, no icterus, pupils equal in both sides, reactive to light, no ear discharge, no pharyngeal erythema Neck: No JV distention, no lymphadenopathy and thyromegaly Chest: Equal air entry on both lung, no additional sounds, no rhonchi, no wheezing Cardiovascular: S1-S2 heard regular sinus rhythm and regular rate, no gallop, no rub, no murmur Abdomen: Soft, nontender, no guarding, no rigidity, bowel sounds present on auscultation, no visible peristalsis Extremities: non pitting edema , missing left great toe, peripheral pulses are felt Central Nervous System: no focal neurological defects, no motor weakness, peripheral neuropathy in bilateral lower extremities, could move all 4 extremities, Musculoskeletal: range of motion of all extremities full.There is no joint pain or joint swelling or joint erythema. There is no muscle pain or tenderness or swelling. Skin: Skin: pressure ulcer present on right posterior leg, warm, dry, no rashes or lesions, no jaundice, no petechiae orpurpura. No ecchymosis. Diagnostic Data Last Recorded Lab Results: 04/09/25 1109 04/09/25 1109 Additional Plan Assessment : 64 years old male with a past medical history of peripheral neuropathy comes to ED with generalized weakness with with a long history of pneumonia, septic arthritis Generalized weakness metabolic encephalopathy, probably due to stroke, or medication 04/09/2025 Hemoglobin : 12.9, hematocrit : 39.8 MCV-83.3, MCHC : 32.4 ESR 14, CRP 1.17, TSH : 0.[address] : No evidence of acute intracranial abnormality. Plan : held home medication CARLOS ENRIQUE pentin Follow up with ESR/CRP and procalcitonin Ordered MRI head Possible acute decompensated heart failure: Chest x-ray : Cardiomegaly and pulmonary vascular congestion. Troponin-7 ProBNP : 144 Plan Check vitals, continue cardiac monitoring Ordered Echocardiogram Hyperlipidemia ordered lipid profile Date of Service: Apr 10, 2025 Billing Provider: MARKO SOLANO MD Common Visit Codes: [id number] INP/OBS CARE (HIGH) Secondary Visit Codes: [id number] CARE PLAN 30 MINUTES CHARY REY, ROBERT Apr 09, 2025 16:22 MARKO SOLANO MD Apr 10, 2025 22:12
[2025-04-09] MEDS: K and/or MAG REPLACEMENT MC SCH (20:00)
[2025-04-09 22:19] LABS: CHOL/HDL RATIO 3.6 (0.00-4.99); LDL CHOLESTEROL 61 MG/DL (50-100)
[2025-04-10] VITALS (10 sets, daily range): BP systolic 117–162; BP diastolic 61–78; PULSE 70–83; RESP 10–20; TEMP 96.7–98.9; O2SAT 90–97
[2025-04-10] MEDS: busPIRone 15mg tablet PO SCH (00:30)
[2025-04-10 06:39] LABS: MEAN PLATELET VOLUME 8.2 FL (7.4-10.4); RED CELL DISTRIBUTION WIDTH 15.6 % (11.5-14.5)
[2025-04-10 07:01] LABS: CREATININE 1.28 MG/DL (0.60-1.10); TOTAL CARBON DIOXIDE 27.3 MMOL/L (24-32); eCRCL 77 ML/MIN; eGFR 57 ML/MIN
[2025-04-10] MEDS: mometasone furoate 0.1% cream 15gm tube TP SCH (08:00)
[2025-04-10] MEDS ORDERED: busPIRone 15mg tablet PO SCH (08:00)
[2025-04-10] MEDS: pantoprazole 40mg Tablet.DR PO SCH (08:21)
[2025-04-10] MEDS: metoprolol succinate 25mg (24-HOUR) SR. Tablet PO SCH (08:22)
[2025-04-10] MEDS ORDERED: GABA-1405 PO (09:37)
[2025-04-10] MEDS ORDERED: QUET-1 PO (09:40)
[2025-04-10] MEDS ORDERED: NALO25TA4 PO (09:43)
[2025-04-10] MEDS ORDERED: DIAZ2TAB3 PO (09:47)
[2025-04-10] MEDS ORDERED: CHOL20004 PO (09:48)
[2025-04-10] MEDS ORDERED: CYAN-34 PO (09:49)
[2025-04-10] MEDS ORDERED: SACC250C9 PO (09:50)
[2025-04-10] MEDS ORDERED: TAMS-55 PO (16:04)
--- NOTE | 2025-04-10 18:06 | PROGRESS NOTE- Residence ---
Progress Note - Resident Providers to CC Resident Creating Document: CHARY REY RES ~ Antibiotic Timeout Antibiotic Ordered?: No Subjective patient seen and examined today. He is feeling drowsy and confused, denies any other problems Objective Vital Signs Date Time Temp Pulse Resp B/P (MAP) Pulse Ox O2 Delivery O2 Flow Rate FiO2 04/10/25 16:30 71 20 96 Room Air* 0 21 04/10/25 11:00 98.8 118/61 (80) Result Diagram: 04/10/25 0609 04/10/25 0609 General: wheel chair bound , weak ,modrate improvement of dizziness, not confused, not agitated, not in acute distress HEENT: Conjunctivae are pink, sclera clear, no icterus, pupils equal in both sides, reactive to light, no ear discharge, no pharyngeal erythema Neck: No JV distention, no lymphadenopathy and thyromegaly Chest: Equal air entry on both lung, no additional sounds, no rhonchi, no wheezing Cardiovascular: S1-S2 heard regular sinus rhythm and regular rate, no gallop, no rub, no murmur Abdomen: Soft, nontender, no guarding, no rigidity, bowel sounds present on auscultation, no visible peristalsis Extremities: non pitting edema , missing left great toe, peripheral pulses are felt Central Nervous System: no focal neurological defects, no motor weakness, peripheral neuropathy in bilateral lower extremities, could move all 4 extremities, Musculoskeletal: range of motion of all extremities full.There is no joint pain or joint swelling or joint erythema. There is no muscle pain or tenderness or swelling. Skin: Skin: pressure ulcer present on right posterior leg, warm, dry, no rashes or lesions, no jaundice, no petechiae orpurpura. No ecchymosis. Assessment Assessment 64 years old male with a past medical history of peripheral neuropathy comes to ED with generalized weakness probable due to stroke or medication Plan Plan Generalized weakness metabolic encephalopathy, probably due to stroke, or medication 04/09/2025 Hemoglobin : 12.9, hematocrit : 39.8 MCV-83.3, MCHC : 32.4 ESR 14, CRP 1.17, TSH : 0.[address] : No evidence of acute intracranial abnormality. Plan : held home medication CARLOS ENRIQUE pentin Follow up with ESR/CRP and procalcitonin Ordered MRI head plan: Hb: 11.8, HCT: 35.7 Continue medical management resume home meds- Lamotrigine 400 mg Po daily (JANET) Gabapentin 600 mg PO BID Quetiapine 300 mg PO HS Diazepam 5 mg Po HS Dizepam 3 mg PO Q6H PRN Pending PT evaluation Possible acute decompensated heart failure: Chest x-ray : Cardiomegaly and pulmonary vascular congestion. Troponin-7 ProBNP : 144 Echo : LVEF is estimated at 55-60%, RVSP -18 mmHg Hb: 11.8 , Hct : 35.7 Plan continue management Check vitals, continue cardiac monitoring Disposition : Continue medical treatment CODE Status full GI prophylaxsis : Protonix DVT prophylaxis : Eliquis 2.5 mg PO Q12H Chary rey PGY1 Date of Service: Apr 10, 2025 Billing Provider: MARKO SOLANO MD Common Visit Codes: [id number] INP/OBS CARE(HIGH) CHARY REY, RES Apr 10, 2025 18:06 MARKO SOLANO MD Apr 10, 2025 22:13
--- NOTE | 2025-04-10 18:47 | CARDIOLOGY REPORT ---
APPROVED REPORT EXAM: Limited 2D, Doppler, and color-flow Echocardiogram. 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 174.3 cm/s AoV VTI 40.6 cm AO Peak GR. 12.2 mmHg AO Mean GR. 7 mmHg LVOT VTI 28.54 cm LVOT Peak [place]. 120.9 cm/s Mitral Valve MV E Velocity 75.2 cm/s MV Peak Gr. 3 mmHg MV DECEL TIME 148 ms MV A Velocity 72.3 cm/s MV PHT 52 ms E/A Ratio 1.0 MVA (PHT) 4.23 cm2 MV VMax83.9 cm/s Tricuspid Valve TR P. Velocity 140 cm/s RAP ESTIMATE 10 mmHg TR Peak Gr. 8 mmHg RVSP 18 mmHg LEFT VENTRICLE Grossly normal LV size and wall thickness. Overall systolic function is normal. LVEF is estimated at 55-60%. TDS RIGHT VENTRICLE RV is grossly normal in size and function. TDS ATRIA The left atrium size appears normal. TDS AORTIC VALVE Probable trileaflet AV appears mildly sclerotic without stenosis. No insufficiency. TDS MITRAL VALVE Mild MV annular calcification without stenosis. Trace regurgitation. TDS TRICUSPID VALVE TV appears structurally normal with trace regurgitation. TDS PULMONIC VALVE Pulmonic valve is not well visualized. TDS GREAT VESSELS Aortic root is not well visualized. TDS PERICARDIUM Normal pericardium. No effusion. TDS Other Information Study Quality: Technically Difficult due to patient positioning, body habitus & respiratory status Conclusion Techinically difficult study. Grossly normal LV size and wall thickness. Overall systolic function is normal. LVEF is estimated at 55-60% RV is grossly normal in size and function. The left atrium size appears normal. Probable trileaflet AV appears mildly sclerotic without stenosis. No insufficiency. Mild MV annular calcification without stenosis. Trace regurgitation. TV appears structurally normal with trace regurgitation. Normal pericardium. No effusion.
[2025-04-11] VITALS (7 sets, daily range): BP systolic 129–173; BP diastolic 61–83; PULSE 66–70; RESP 14–20; TEMP 97.6–98.9; O2SAT 93–96
[2025-04-11] MEDS: diazepam 2mg tablet PO PRN (01:19)
[2025-04-11 05:31] LABS: MEAN PLATELET VOLUME 8.0 FL (7.4-10.4); RED CELL DISTRIBUTION WIDTH 15.3 % (11.5-14.5)
[2025-04-11 05:57] LABS: CREATININE 1.14 MG/DL (0.60-1.10); TOTAL CARBON DIOXIDE 26.1 MMOL/L (24-32); eCRCL 87 ML/MIN; eGFR 65 ML/MIN
[2025-04-11] MEDS ORDERED: DIAZ5TAB4 PO (10:09)
[2025-04-11] MEDS ORDERED: HYDR2TAB28 PO (10:09)
--- NOTE | 2025-04-11 14:30 | PROGRESS NOTE- Residence ---
Progress Note - Resident Providers to CC Resident Creating Document: CHARY REY RES ~ Antibiotic Timeout Antibiotic Ordered?: No Subjective patient seen and examined today. He is feeling little tired, denies any other problem Objective Vital Signs Date Time Temp Pulse Resp B/P (MAP) Pulse Ox O2 Delivery O2 Flow Rate FiO2 04/11/25 13:45 156/66 (96) 04/11/25 10:00 98.6 68 14 95 Room Air 04/10/25 20:29 0 21 Result Diagram: 04/11/2519 04/11/25518 General: wheel chair bound , weak ,modrate improvement of dizziness, not confused, not agitated, not in acute distress HEENT: Conjunctivae are pink, sclera clear, no icterus, pupils equal in both sides, reactive to light, no ear discharge, no pharyngeal erythema Neck: No JV distention, no lymphadenopathy and thyromegaly Chest: Equal air entry on both lung, no additional sounds, no rhonchi, no wheezing Cardiovascular: S1-S2 heard regular sinus rhythm and regular rate, no gallop, no rub, no murmur Abdomen: Soft, nontender, no guarding, no rigidity, bowel sounds present on auscultation, no visible peristalsis Extremities: non pitting edema , missing left great toe, peripheral pulses are felt Central Nervous System: no focal neurological defects, no motor weakness, peripheral neuropathy in bilateral lower extremities, could move all 4 extremities, Musculoskeletal: range of motion of all extremities full.There is no joint pain or joint swelling or joint erythema. There is no muscle pain or tenderness or swelling. Skin: Skin: pressure ulcer present on right posterior leg, warm, dry, no rashes or lesions, no jaundice, no petechiae orpurpura. No ecchymosis. Assessment Assessment 64 years old male with a past medical history of peripheral neuropathy comes to ED with generalized weakness Plan Plan Generalized weakness possible dehydration, metabolic encephalopathy, stroke "Rule out' Hemoglobin : 12.5 , hematocrit :37.9 MCV-81, MCHC : 32.9 continue IV Fluids Pending PT evaluation Chronic Congestive heart failure with preserved ejection fraction of 60 % Chest x-ray : Cardiomegaly and pulmonary vascular congestion. Troponin-7 ProBNP : 144 Echo : LVEF: 55-60%, RVSP -18 mmHg Plan continue management Ordered proBNP Check vitals, continue cardiac monitoring Hypertension: patient blood pressure elevated to 173/83 plan: Lisinopril 5mg Po Once Metaprolol 25 mg po once Hydralazine if SBP >180 continue home meds Lamotrigine 400 mg Po daily (JANET) Gabapentin 600 mg PO BID Quetiapine 300 mg PO HS Diazepam 5 mg Po HS Dizepam 3 mg PO Q6H PRN Disposition : Continue medical treatment CODE Status full GI prophylaxsis : Protonix DVT prophylaxis : Eliquis 2.5 mg PO Q12H Chary rey PGY1 Date of Service: Apr 11, 2025 Billing Provider: MARKO SOLANO MD Common Visit Codes: [id number] INP/OBS CARE(HIGH) CHARY REY, RES Apr 11, 2025 14:30 MARKO SOLANO MD Apr 13, 2025 06:10
[2025-04-11] MEDS: metoprolol succinate 25mg (24-HOUR) SR. Tablet PO ONE (15:33)
[2025-04-11 15:40] LABS: PRO BRAIN NATRIURETIC PEPTIDE 597 PG/ML (0-125)
[2025-04-11] MEDS ORDERED: hydrALAZINE 20mg/ml inj. IV PRN (17:50)
[2025-04-11] MEDS: JUVEN Smoothie Arginine/Glut./Ca2+Bmb (Juven 19.3pkt) 240ml cup PO SCH (18:02)
[2025-04-12] MEDS: HYDROcodone/acetaminophen 10/325mg tab PO PRN (01:28)
[2025-04-12 06:00] VITALS: BP 134/66; PULSE 63; RESP 12; TEMP 97.6; O2SAT 94
[2025-04-12 06:15] LABS: MEAN PLATELET VOLUME 8.4 FL (7.4-10.4); RED CELL DISTRIBUTION WIDTH 15.8 % (11.5-14.5)
[2025-04-12 06:27] LABS: CREATININE 1.24 MG/DL (0.60-1.10); TOTAL CARBON DIOXIDE 27.2 MMOL/L (24-32); eCRCL 80 ML/MIN; eGFR 59 ML/MIN
[2025-04-12] MEDS: metoprolol succinate 25mg (24-HOUR) SR. Tablet PO SCH (07:53)
[2025-04-12 08:00] VITALS: RESP 16
[2025-04-12 10:00] VITALS: BP 124/52; PULSE 62; RESP 14; TEMP 97.3; O2SAT 96
--- NOTE | 2025-04-12 12:41 | PROGRESS NOTE- Residence ---
Progress Note - Resident Providers to CC Resident Creating Document: CHARY REY RES ~ Antibiotic Timeout Antibiotic Ordered?: No Subjective Patient is examined at the bedside. He reports improvement in weakness . Now he only complaint of right ankle pain, he denies nausea vomitings, chills Objective Vital Signs Date Time Temp Pulse Resp B/P (MAP) Pulse Ox O2 Delivery O2 Flow Rate FiO2 04/12/25 10:00 97.3 62 14 124/52 (76) 96 Room Air 04/10/25 20:29 0 21 Result Diagram: 04/12/25 0533 04/12/25532 General: altert, awake, oriented , not agitated, not in acute distress HEENT: Conjunctivae are pink, sclera clear, no icterus, pupils equal in both sides, reactive to light, no ear discharge, no pharyngeal erythema Neck: No JV distention, no lymphadenopathy and thyromegaly Chest: Equal air entry on both lung, no additional sounds, no rhonchi, no wheezing Cardiovascular: S1-S2 heard regular sinus rhythm and regular rate, no gallop, no rub, no murmur Abdomen: Soft, nontender, no guarding, no rigidity, bowel sounds present on auscultation, no visible peristalsis Extremities: non pitting edema , missing left great toe, peripheral pulses are felt Central Nervous System: no focal neurological defects, no motor weakness, peripheral neuropathy in bilateral lower extremities Musculoskeletal: range of motion of all extremities full.There is no joint pain or joint swelling or joint erythema. There is no muscle pain or tenderness or swelling. Skin: Skin: warm and dry Assessment Assessment 64 years old male with a past medical history of peripheral neuropathy comes to ED with generalized weakness Plan Plan Generalized weakness possible dehydration, metabolic encephalopathy, Stroke - ruled out: BUN : 8 , Creatine 1.24 Patient initially started on NS. Discontinue IV fluids PT evaluated and recommended Post acute care Case management is actively working for placement Chronic conjestive hear failure with preserved ejection fraction 60% Chest x-ray : Cardiomegaly and pulmonary vascular congestion. Troponin-7 ProBNP : 144 Echo : LVEF: 55-60%, RVSP -18 mmHg Plan: Check vitals, continue cardiac monitoring Hypertension: today patient blood presssure is 135/76 mmg plan: Metaprolol 50mg po OD Hydralazine 10mg q 8 h PRN (if SBP >180mm hg or DBP >100) continue home meds- Lamotrigine 400 mg Po daily (JANET) Gabapentin 600 mg PO BID Quetiapine 300 mg PO HS Diazepam 5 mg Po HS Dizepam 3 mg PO Q6H PRN Disposition : Continue medical treatment CODE Status full GI prophylaxsis : Protonix DVT prophylaxis : Eliquis 2.5 mg PO Q12H Chary rey PGY1 Date of Service: Apr 12, 2025 Billing Provider: MARKO SOLANO MD Common Visit Codes: [id number] INP/OBS CARE(HIGH) CHARY REY, RES Apr 12, 2025 12:41 MARKO SOLANO MD Apr 13, 2025 06:11
[2025-04-12 18:00] VITALS: BP 135/76; PULSE 62; RESP 14; TEMP 97.9; O2SAT 95
[2025-04-12 22:00] VITALS: BP 135/62; PULSE 63; RESP 14; TEMP 97.8; O2SAT 94
[2025-04-13 06:00] VITALS: BP 158/78; PULSE 70; RESP 17; TEMP 98; O2SAT 95
[2025-04-13 06:21] LABS: MEAN PLATELET VOLUME 8.2 FL (7.4-10.4); RED CELL DISTRIBUTION WIDTH 16.0 % (11.5-14.5)
[2025-04-13 06:43] LABS: CREATININE 1.22 MG/DL (0.60-1.10); TOTAL CARBON DIOXIDE 26.9 MMOL/L (24-32); eCRCL 81 ML/MIN; eGFR 60 ML/MIN
[2025-04-13 08:00] VITALS: RESP 18; O2SAT 95
[2025-04-13 10:00] VITALS: BP 135/63; PULSE 69; RESP 17; TEMP 97.6; O2SAT 95
--- NOTE | 2025-04-13 13:48 | PROGRESS NOTE- Residence ---
Progress Note - Resident Providers to CC Resident Creating Document: HARPREET VINSON RES ~ Antibiotic Timeout Antibiotic Ordered?: No Subjective Patient seen and examined at the bedside, denied chest pain shortness of breaths or any new complaint, waiting for placement Objective Vital Signs Date Time Temp Pulse Resp B/P (MAP) Pulse Ox O2 Delivery O2 Flow Rate FiO2 04/13/25 10:00 97.6 69 17 135/63 (87) 95 Room Air 04/10/25 20:29 0 21 Result Diagram: 04/13/25 0543 04/13/25 0543 General: Obese gentleman, lying in the bed with no acute distress HEENT: Conjunctiva pink, Sclera clear, Mucus Membranes moist. Neck: Supple without masses and tenderness. Resp: Lungs clear to auscultation bilaterally. Heart: Regular Rate and rhythm, normal S1 and S2. Abdomen: Soft and non tender no organomegaly Extremities: No cyanosis,clubbing or edema. Skin: Warm and Dry. Neurological: Speech is clear, alert, and oriented x 4, Upper on lower extremity strength 4/5, unstable gait Assessment Assessment 64 years old male with a past medical history of bipolar disorder, chronic back pain, bariatric sleeve, peripheral neuropathy, cognitive decline comes to ED with generalized weakness Plan Plan Generalized weakness possible dehydration, metabolic encephalopathy, stroke ruled out Hemoglobin : 12.5 , hematocrit :37.9, stable Patient received IV fluid initially and improved IV fluids stopped, physical therapy recommended post acute care Chronic Congestive heart failure with preserved ejection fraction of 60 % Hypertension Chest x-ray : Cardiomegaly and pulmonary vascular congestion. Troponin-7, ProBNP : 144 Initially patient received IV fluid however we stopped it on 04/12/2025 concern for CHF, patient is euvolemic now Increase the dose of metoprolol to 50 due to uncontrolled blood pressure, l isinopril started and we will continue History of DVT and PE Continue Eliquis 2.5 b.i.d. History of cognitive decline, bipolar We will continue home medication Lamotrigine 400 mg Po daily (JANET), Gabapentin 600 mg PO BID Quetiapine 300 mg PO HS, Diazepam 5 mg Po HS, Dizepam 3 mg PO Q6H PRN Code Status: full DVT prophylaxis: On Eliquis 2.5 b.i.d. Analgesia/sedation: [place] Line/tube: Peripheral GI prophylaxis: Protonix Nutrition: Regular PT: Yes Prognosis: Guarded Disposition: Continue monitoring patient in ortho floor, physical therapy recommended post acute care, pending rehab placement Harpreet Vinson MD Internal Medicine Resident Date of Service: Apr 13, 2025 Billing Provider: MARKO SOLANO MD Common Visit Codes: [id number] INP/OBS CARE(HIGH) HARPREET VINSON, ROBERT Apr 13, 2025 13:48 MARKO SOLANO MD Apr 14, 2025 06:50
[2025-04-13 18:00] VITALS: BP 151/72; PULSE 70; RESP 20; TEMP 98.5; O2SAT 93
[2025-04-13] MEDS: HYDROcodone/acetaminophen 5mg/325mg tablet PO PRN (20:32)
[2025-04-13 22:00] VITALS: BP 150/75; PULSE 70; RESP 16; TEMP 98.8; O2SAT 93
[2025-04-14 05:50] LABS: MEAN PLATELET VOLUME 8.6 FL (7.4-10.4); RED CELL DISTRIBUTION WIDTH 15.6 % (11.5-14.5)
[2025-04-14 06:00] VITALS: BP 147/81; PULSE 63; RESP 17; TEMP 97.6; O2SAT 90
[2025-04-14 06:12] LABS: CREATININE 1.27 MG/DL (0.60-1.10); TOTAL CARBON DIOXIDE 30.3 MMOL/L (24-32); eCRCL 78 ML/MIN; eGFR 57 ML/MIN
[2025-04-14 08:00] VITALS: RESP 17; O2SAT 96
[2025-04-14 10:00] VITALS: BP 119/52; PULSE 61; RESP 20; TEMP 97.7; O2SAT 95
--- NOTE | 2025-04-14 14:50 | PROGRESS NOTE- Residence ---
Progress Note - Resident Providers to CC Resident Creating Document: CHARY REY RES ~ Antibiotic Timeout Antibiotic Ordered?: No Subjective Patient seen and examined at the bedside, denied chest pain shortness of breaths or any new complaint Objective Vital Signs Date Time Temp Pulse Resp B/P (MAP) Pulse Ox O2 Delivery O2 Flow Rate FiO2 04/14/25 13:45 16 04/14/25 10:00 97.7 61 119/52 (74) 95 Room Air 04/10/25 20:29 0 21 Result Diagram: 04/14/25 0513 04/14/25 05 General: Obese, lying in the bed with no acute distress HEENT: Conjunctiva pink, Sclera clear, Mucus Membranes moist. Neck: Supple without masses and tenderness. Resp: Lungs clear to auscultation bilaterally. Heart: Regular Rate and rhythm, normal S1 and S2. Abdomen: Soft and non tender no organomegaly Extremities: No cyanosis,clubbing or edema. Skin: Warm and Dry. Neurological: Speech is clear, alert, and oriented x 4, Upper on lower extremity strength 4/5, unstable gait Assessment Assessment 64 years old male with a past medical history of bipolar disorder, chronic back pain, bariatric sleeve, peripheral neuropathy, cognitive decline comes to ED with generalized weakness Plan Plan Generalized weakness possible dehydration, metabolic encephalopathy, stroke ruled out Hemoglobin : 12.1 , hematocrit :36.9, stable Patient received IV fluid initially and improved IV fluids stopped, physical therapy recommended post acute care 04/14/25: No changes waiting for placement Chronic Congestive heart failure with preserved ejection fraction of 60 % Hypertension BP: 119/52 Chest x-ray : Cardiomegaly and pulmonary vascular congestion. Troponin-7, ProBNP : 144- 597 Initially patient received IV fluid however we stopped it on 04/12/2025 concern for CHF, patient is euvolemic now 04/14/25: Continue metoprolol 50mg PO OD History of DVT and PE Held Eliquis 2.5 mg PO Q12h 04/14/25 : Patient met the criteria to continue Eliquis full dose, Started Eliquis 5 mg PO Q12h History of cognitive decline, bipolar We will continue home medication Lamotrigine 400 mg Po daily (JANET), Gabapentin 600 mg PO BID Quetiapine 300 mg PO HS, Diazepam 5 mg Po HS, Dizepam 3 mg PO Q6H PRN Code Status: full DVT prophylaxis: On Eliquis 5mg b.i.d. Analgesia/sedation: [place] Line/tube: Peripheral GI prophylaxis: Protonix Nutrition: Regular PT: Yes Prognosis: Guarded Disposition: Continue monitoring patient in ortho floor, physical therapy recommended post acute care, pillowcase cutter working for placement as her report refuses [facility]. Pending [facility] rehab to answer on Wednesday. Will continue to follow for DC needs. Chary Rey PGY1 Date of Service: Apr 14, 2025 Billing Provider: MARKO SOLANO MD Common Visit Codes: [id number] INP/OBS CARE(HIGH) CHARY REY, RES Apr 14, 2025 14:50 HARPREET [place], RES Apr 14, 2025 16:12 MARKO SOLANO MD Apr 15, 2025 07:20
[2025-04-14] MEDS: JUVEN Shake w/Arg/Glut/Ca2+Bmb (Juven 19.3gm) pkt 240ml PO SCH (17:00)
[2025-04-14 18:00] VITALS: BP 129/74; PULSE 55; RESP 20; TEMP 97.2; O2SAT 93
[2025-04-14 22:00] VITALS: BP 111/61; PULSE 60; RESP 15; TEMP 98.5; O2SAT 92
[2025-04-15 06:00] VITALS: BP 149/75; PULSE 63; RESP 16; TEMP 97.7; O2SAT 94
[2025-04-15] MEDS: JUVEN Smoothie Arginine/Glut./Ca2+Bmb (Juven 19.3pkt) 240ml cup PO SCH (07:30)
[2025-04-15 09:14] LABS: MEAN PLATELET VOLUME 8.3 FL (7.4-10.4); RED CELL DISTRIBUTION WIDTH 15.9 % (11.5-14.5)
[2025-04-15 09:30] LABS: CREATININE 1.20 MG/DL (0.60-1.10); TOTAL CARBON DIOXIDE 29.0 MMOL/L (24-32); eCRCL 82 ML/MIN; eGFR 61 ML/MIN
--- NOTE | 2025-04-15 14:15 | PROGRESS NOTE- Residence ---
Progress Note - Resident Providers to CC Resident Creating Document: CHARY REY RES ~ Antibiotic Timeout Antibiotic Ordered?: No Subjective Patient examined at bed side. he denies SOB, chest pain, dizziness Objective Vital Signs Date Time Temp Pulse Resp B/P (MAP) Pulse Ox O2 Delivery O2 Flow Rate FiO2 04/15/25 08:03 Bi-pap/CPAP 04/15/25 06:00 97.7 63 16 149/75 (99) 94 Result Diagram: 04/15/25 0850 04/16/25 0523 General: Oriented , obese , lying in the bed with no acute distress HEENT: [place] conjunctiva , clear mucosa, moist mucus membrane Neck: Supple, no jvd, no lymphadenopathy , no thyromegalay Resp: equal air movement bilterally,Lungs clear to auscultation bilaterally. Heart:normal S1 and S2 , no extra heart sounds, no murmurs, no rubs Abdomen: Soft and non tender no organomegaly, normal bowel sounds heard Extremities: No cyanosis,clubbing or edema. Skin: Warm and Dry. Neurological: Speech is clear, alert, Upper on lower extremity strength 4/5, unstable gait Assessment Assessment 64 years old male with a past medical history of bipolar disorder, chronic back pain, bariatric sleeve, peripheral neuropathy, cognitive decline comes to ED with generalized weakness Plan Plan Generalized weakness possible dehydration, metabolic encephalopathy, stroke ruled out Hemoglobin : 12.1 , hematocrit :36.9, stable Patient received IV fluid initially and improved IV fluids stopped, physical therapy recommended post acute care 04/15/25: No changes waiting for placement Continue CBP/CMP Chronic Congestive heart failure with preserved ejection fraction of 60 % Hypertension BP: 149/75 Chest x-ray : Cardiomegaly and pulmonary vascular congestion. Troponin-7, ProBNP : 144- 597 Initially patient received IV fluid however we stopped it on 04/12/2025 concern for CHF, patient is euvolemic now Continue metoprolol 50mg PO OD History of DVT and PE Held Eliquis 2.5 mg PO Q12h 04/14/25 : Patient met the criteria to continue Eliquis full dose, Started Eliquis 5 mg PO Q12h 04/15/25: Continue Eliquis 5mg PO Q12h History of cognitive decline, bipolar We will continue home medication Lamotrigine 400 mg Po daily (JANET), Gabapentin 600 mg PO BID Quetiapine 300 mg PO HS, Diazepam 5 mg Po HS, Dizepam 3 mg PO Q6H PRN Code Status: full DVT prophylaxis: On Eliquis 5mg b.i.d. Analgesia/sedation: [place] Line/tube: Peripheral GI prophylaxis: Protonix Nutrition: Regular PT: Yes Prognosis: Guarded Disposition: Continue monitoring patient in ortho floor, physical therapy recommended post acute care, immigration case manager working for placement as her report refuses [facility]. Pending D rehab to answer on Wednesday. Will continue to follow for DC needs. Chary Rey PGY1 Addendum morbid obesity bmi 46 Date of Service: Apr 15, 2025 Billing Provider: MARKO SOLANO MD Common Visit Codes: [id number] INP/OBS CARE(HIGH) CHARY REY, ROBERT Apr 15, 2025 14:15 MARKO SOLANO MD Apr 16, 2025 06:34
[2025-04-15 18:00] VITALS: BP 157/63; PULSE 73; RESP 12; TEMP 98.4; O2SAT 95
[2025-04-15 22:00] VITALS: BP 133/63; PULSE 76; RESP 14; TEMP 99.6; O2SAT 92
[2025-04-16] VITALS (7 sets, daily range): BP systolic 122–167; BP diastolic 55–71; PULSE 65–92; RESP 15–19; TEMP 97.8–102.8; O2SAT 90–95
[2025-04-16 05:57] LABS: MEAN PLATELET VOLUME 8.4 FL (7.4-10.4); RED CELL DISTRIBUTION WIDTH 15.9 % (11.5-14.5)
[2025-04-16 06:21] LABS: CREATININE 1.31 MG/DL (0.60-1.10); TOTAL CARBON DIOXIDE 25.7 MMOL/L (24-32); eCRCL 76 ML/MIN; eGFR 55 ML/MIN
[2025-04-16 06:45] LABS: LYMPHOCYTES % (MANUAL) 18.0 % (21-51); MONOCYTES % (MANUAL) 11.0 % (2-12); NEUTROPHILS % (MANUAL) 71.0 % (42-75); PLATELET ESTIMATE DECREASED
[2025-04-16 10:48] LABS: ABG BASE EXCESS -2.1 mmol/L (-2.0-3.0); ABG HCO3 21.7 mmol/L (21.0-28.0); ABG OXYGEN SATURATION 93.8 % (94.0-98.0); ABG PCO2 (T) 33.8 mmHg (35.0-48.0); ABG PH (T) 7.424 (7.350-7.450); ABG PO2 (T) 66.3 mmHg (83.0-108.0); ALLEN'S TEST POSITIVE; FCOHb 1.2 % (0.5-1.5); FHHb 6.1 % (0.0-5.0); FIO2 21.0 mmHg/%; FMetHb 0.3 % (0.0-1.5); FO2Hb 92.4 % (94.0-98.0); MODE MASK - CPAP; PATIENT TEMPERATURE 36.6; TOTAL HEMOGLOBIN 13.0 G/dl (13.5-17.5)
[2025-04-16] MEDS: LidoCAINE 2% Topical Jelly 11mL syringe (UROJET) TOP ONE (15:00)
--- NOTE | 2025-04-16 15:48 | PROGRESS NOTE- Residence ---
Progress Note - Resident Providers to CC Resident Creating Document: CHARY BLACK RES ~ Antibiotic Timeout Antibiotic Ordered?: No Subjective Patient examined at bed side ,he did not mention any dizziness, SOB , Chest pain Objective Vital Signs Date Time Temp Pulse Resp B/P (MAP) Pulse Ox O2 Delivery O2 Flow Rate FiO2 04/16/25 10:00 100.3 65 16 122/55 (77) 95 Room Air 04/16/25 07:40 0.0 21 Result Diagram: 04/16/2552204/16/25522 General: Oriented , obese , lying in the bed with no acute distress HEENT: [place] conjunctiva , clear mucosa, moist mucus membrane Neck: Supple, no jvd, no lymphadenopathy , no thyromegalay Resp: equal air movement bilterally,Lungs clear to auscultation bilaterally. Heart:normal S1 and S2 , no extra heart sounds, no murmurs, no rubs Abdomen: [place] fullness, Soft and non tender no organomegaly, normal bowel sounds heard Extremities: No cyanosis,clubbing or edema.Missing right great toe Skin: Warm and Dry. Neurological: Speech is clear, alert, Upper on lower extremity strength 4/5, unstable gait Assessment Assessment 64 years old male with a past medical history of bipolar disorder, chronic back pain, bariatric sleeve, peripheral neuropathy, cognitive decline comes to ED with generalized weakness Plan Plan Generalized weakness possible dehydration, metabolic encephalopathy, stroke ruled out Hemoglobin : 12.1 , hematocrit :36.9, stable Patient received IV fluid initially and improved IV fluids stopped, physical therapy recommended post acute care 04/15/25: No changes waiting for placement Continue CBP/CMP 04/16/25: BUN : 11 , Cr ; 1.31 , Hb: 12.6 , HCT- 32.9 Continue CBP/BMP Chronic Congestive heart failure with preserved ejection fraction of 60 % Hypertension BP: 149/75 Chest x-ray : Cardiomegaly and pulmonary vascular congestion. Troponin-7, ProBNP : 144- 597 Initially patient received IV fluid however we stopped it on 04/12/2025 concern for CHF, patient is euvolemic now Continue metoprolol 50mg PO OD History of DVT and PE Held Eliquis 2.5 mg PO Q12h 04/14/25 : Patient met the criteria to continue Eliquis full dose, Started Eliquis 5 mg PO Q12h 04/15/25: Continue Eliquis 5mg PO Q12h : Continue eliquis 5mg PO Q12H History of cognitive decline, bipolar We will continue home medication Lamotrigine 400 mg Po daily (JANET), Gabapentin 600 mg PO BID Quetiapine 300 mg PO HS, Diazepam 5 mg Po HS, Dizepam 3 mg PO Q6H PRN Code Status: full DVT prophylaxis: On Eliquis 5mg b.i.d. Analgesia/sedation: [place] Line/tube: Peripheral GI prophylaxis: Protonix Nutrition: Regular PT: Yes Prognosis: Guarded Disposition: Continue monitoring patient in ortho floor, physical therapy recommended post acute care, telephonic nurse case manager working for placement as her report refuses [facility]. ANDREA Mustafa rejected . we will discuss with patients telephonic nurse case manager to provide bed and wilian while discharging Chary Black PGY1 Addendum morbid obesity, bmi 46; per discussion with if isiah mustafa declines pt will dc home with equipment Date of Service: Apr 16, 2025 Billing Provider: MARKO SOLANO MD Common Visit Codes: [id number] INP/OBS CARE(HIGH) CHARY BLACK RES Apr 16, 2025 15:48 MARKO SOLANO MD Apr 17, 2025 07:37
[2025-04-16] MEDS: docusate sod 100mg capsule PO ONE (17:51)
[2025-04-16] MEDS: albuterol 2.5 MG/3 ML nebule NEB PRN (23:54)
[2025-04-17] VITALS (8 sets, daily range): BP systolic 80–154; BP diastolic 42–69; PULSE 82–98; RESP 16–22; TEMP 97.8–99.9; O2SAT 90–95
[2025-04-17 09:00] LABS: MEAN PLATELET VOLUME 8.9 FL (7.4-10.4); RED CELL DISTRIBUTION WIDTH 15.9 % (11.5-14.5)
[2025-04-17 09:18] LABS: CREATININE 1.62 MG/DL (0.60-1.10); TOTAL CARBON DIOXIDE 26.8 MMOL/L (24-32); eCRCL 61 ML/MIN; eGFR 43 ML/MIN
--- NOTE | 2025-04-17 09:28 | RADIOLOGY REPORT ---
DI CHEST,SINGLE VIEW, HISTORY: fever COMPARISON: DI CHEST,SINGLE VIEW on DOS: 04/09/25 DI CHEST,SINGLE VIEW on DOS: 04/09/25 TECHNICAL DATA: 1 view of the chest was obtained. FINDINGS: Lines and tubes: None Cardiomediastinal silhouette: prominent Pulmonary vasculature: prominent Lung expansion: normal Lung airspace: normal Lung interstitium: normal Pleura: normal Pneumothorax: no Bones: Unremarkable Other: no IMPRESSION: Cardiomegaly and pulmonary vascular congestion.
[2025-04-17] MEDS: levoFLOXACIN-Levaquin 500mg/D5 100 ML IV SCH (13:53)
[2025-04-17] MEDS: metroNIDAZOLE-Flagyl 500mg/NS 100 ML IV SCH (15:28)
--- NOTE | 2025-04-17 17:19 | PROGRESS NOTE- Residence ---
Progress Note - Resident Providers to CC Resident Creating Document: CHARY REY RES ~ Antibiotic Timeout Antibiotic Ordered?: Yes Subjective Patient examined at bed side ,he did reported fever , did not mention any dizziness, SOB , Chest pain Objective Vital Signs Date Time Temp Pulse Resp B/P (MAP) Pulse Ox O2 Delivery O2 Flow Rate FiO2 04/17/25 10:44 89 20 95 Room Air* 0 21 04/17/25 10:00 98.7 101/45 (63) Result Diagram: 04/17/25 0744 04/17/25 0744 General: obese , oriented,lying in the bed with no acute distress HEENT: [place] conjunctiva , clear mucosa, moist mucus membrane Neck: Supple, no jvd, no lymphadenopathy , no thyromegalay Resp: equal air movement bilterally,Lungs clear to auscultation bilaterally. Heart:normal S1 and S2 , no extra heart sounds, no murmurs, no rubs Abdomen:, Soft and non tender no organomegaly, normal bowel sounds heard Extremities: No cyanosis,clubbing or edema.Missing right great toe Skin: Warm and Dry. Neurological: alert, Upper on lower extremity strength 4/5, unstable gait Advance Care Planning Advanced Care plannin - 30 Minutes Assessment Assessment 64 years old male with a past medical history of bipolar disorder, chronic back pain, bariatric sleeve, peripheral neuropathy, cognitive decline comes to ED with generalized weakness Plan Plan Generalized weakness possible dehydration, metabolic encephalopathy, stroke ruled out Hemoglobin : 12.1 , hematocrit :36.9, stable Patient received IV fluid initially and improved IV fluids stopped, physical therapy recommended post acute care 04/15/25: No changes waiting for placement Continue CBP/CMP 04/16/25: BUN : 11 , Cr ; 1.31 , Hb: 12.6 , HCT- 32.9 Continue CBP/BMP 04/17/20 BUN 11, Creatinine: 1.62 Continue monitoring CMP UTI temperature : 102- 99.7-98.7 heart rate ; 98, BP; 101/45 ESR; 16 , Procal; 0.60, temperature: 102-99.9-97.8-98.7 CRP-4.91 plan: Chest xray shows cardiomegalay and pulmonary vascular congestion Ordered urine analysis started levofloaxin 100 ml/hr - IV Daily started metronidazole 500mg- 100ml/hr q12h IV Chronic Congestive heart failure with preserved ejection fraction of 60 % Hypertension BP: 149/75 Chest x-ray : Cardiomegaly and pulmonary vascular congestion. Troponin-7, ProBNP : 144- 597 Initially patient received IV fluid however we stopped it on 04/12/2025 concern for CHF, patient is euvolemic now Continue metoprolol 50mg PO OD History of DVT and PE Held Eliquis 2.5 mg PO Q12h on 04/14/25 04/17/25: Continue eliquis 5mg PO Q12H History of cognitive decline, bipolar We will continue home medication Lamotrigine 400 mg Po daily (JANET), Gabapentin 600 mg PO BID Quetiapine 300 mg PO HS, Diazepam 5 mg Po HS, Dizepam 3 mg PO Q6H PRN Code Status: full DVT prophylaxis: On Eliquis 5mg b.i.d. Analgesia/sedation: [place] Line/tube: Peripheral GI prophylaxis: Protonix Nutrition: heart healthy Prognosis: Guarded Disposition: Continue monitoring patient in ortho floor, physical therapy recommended post acute care,Jairo at [facility], patient's came and took a tour of their facility. Jairo said she was very disengaged. He did tell her that they have other facilities in [place]. They are still willing and able to take patient. Will continue to monitor patient Chary Wayne PGY1 Date of Service: Apr 17, 2025 Billing Provider: MARKO SOLANO MD Common Visit Codes: [id number] INP/OBS CARE(HIGH) CHARY REY, ROEBRT Apr 17, 2025 17:19 MARKO SOLANO MD Apr 18, 2025 07:03
[2025-04-17] MEDS: lactobacillus rhamnosus 10,000 MMU CELLS/CAPSULE PO SCH (20:59)
[2025-04-17 21:29] LABS: LEUKOCYTE ESTERASE ,URINE NEGATIVE (Neg); NITRITES, URINE NEGATIVE (Neg); OCCULT BLOOD,URINE MODERATE (Neg)
[2025-04-17 21:30] LABS: UA COLLECTION TYPE FOLEY CATH
[2025-04-17 21:39] LABS: MUCUS STRANDS FEW /LPF (Neg); SQUAMOUS EPITHELIAL CELL,UR FEW /LPF (FEW)
[2025-04-17 21:40] LABS: CAL OXALATE CRYSTALS FEW /HPF (NEGATIVE)
[2025-04-17 21:41] LABS: YEAST FEW /HPF (NEGATIVE)
[2025-04-17] MEDS: normal saline 1000ml 1,000 ML IV ONE (22:42)
[2025-04-18] VITALS (7 sets, daily range): BP systolic 95–107; BP diastolic 48–53; PULSE 87–93; RESP 18–22; TEMP 98.1–100.9; O2SAT 91–94
[2025-04-18] MEDS: normal saline 1000ml 1,000 ML IV SCH (00:10)
[2025-04-18 03:36] LABS: ABG BASE EXCESS -1.0 mmol/L (-2.0-3.0); ABG HCO3 22.1 mmol/L (21.0-28.0); ABG OXYGEN SATURATION 94.2 % (94.0-98.0); ABG PCO2 (T) 32.3 mmHg (35.0-48.0); ABG PH (T) 7.455 (7.350-7.450); ABG PO2 (T) 65.8 mmHg (83.0-108.0); ALLEN'S TEST Modified; FCOHb 1.2 % (0.5-1.5); FHHb 5.7 % (0.0-5.0); FIO2 28.0 mmHg/%; FMetHb 0.3 % (0.0-1.5); FO2Hb 92.8 % (94.0-98.0); PATIENT TEMPERATURE 37.2; TOTAL HEMOGLOBIN 12.6 G/dl (13.5-17.5)
[2025-04-18 08:10] LABS: MEAN PLATELET VOLUME 9.1 FL (7.4-10.4); RED CELL DISTRIBUTION WIDTH 15.9 % (11.5-14.5)
[2025-04-18 08:24] LABS: CREATININE 2.85 MG/DL (0.60-1.10); TOTAL CARBON DIOXIDE 23.1 MMOL/L (24-32); eCRCL 35 ML/MIN; eGFR 22 ML/MIN
[2025-04-18 08:32] LABS: PRO BRAIN NATRIURETIC PEPTIDE 473 PG/ML (0-125)
[2025-04-18 08:42] LABS: BANDS% (MANUAL) 1.0 % (0-10); LARGE PLATELETS FEW; LYMPHOCYTES % (MANUAL) 20.0 % (21-51); MONOCYTES % (MANUAL) 21.0 % (2-12); NEUTROPHILS % (MANUAL) 58.0 % (42-75); PLATELET ESTIMATE DECREASED
[2025-04-18] MEDS: lactose-reduced food (Ensure Enlive) - 237ml bottle PO SCH (13:00)
[2025-04-18] MEDS ORDERED: potassium Cl 20 mEq SR tablet PO PRN (16:00)
[2025-04-18] MEDS ORDERED: potassium Cl 40MEQ/1/2NS 520ml 520 ML IV PRN (16:00)
--- NOTE | 2025-04-18 17:15 | PROGRESS NOTE- Residence ---
Progress Note - Resident Providers to CC Resident Creating Document: CHARY REY RES ~ Antibiotic Timeout Antibiotic Ordered?: Yes Subjective Patient examined at bed side ,he did reported fever , did not mention any dizziness, SOB , Chest pain Objective Vital Signs Date Time Temp Pulse Resp B/P (MAP) Pulse Ox O2 Delivery O2 Flow Rate FiO2 04/18/25 14:47 17 04/18/25 10:36 98.1 92 107/52 (70) 93 Nasal Cannula 3.0 04/18/25 07:17 21 Result Diagram: 04/18/25 0723 04/18/25 0723 General: obese , oriented,lying in the bed with no acute distress HEENT: [place] conjunctiva , clear mucosa, moist mucus membrane Neck: Supple, no jvd, no lymphadenopathy , no thyromegalay Resp: equal air movement bilterally,Lungs clear to auscultation bilaterally. Heart:normal S1 and S2 , no extra heart sounds, no murmurs, no rubs Abdomen:, Soft and non tender no organomegaly, normal bowel sounds heard Extremities: No cyanosis,clubbing or edema.Missing right great toe Skin: Warm and Dry. Neurological: alert, Upper on lower extremity strength 4/5, unstable gait Assessment Assessment 64 years old male with a past medical history of bipolar disorder, chronic back pain, bariatric sleeve, peripheral neuropathy, cognitive decline comes to ED with generalized weakness Plan Plan Generalized weakness possible dehydration, metabolic encephalopathy, stroke ruled out Hemoglobin : 12.1 , hematocrit :36.9, stable Patient received IV fluid initially and improved IV fluids stopped, physical therapy recommended post acute care 04/15/25: No changes waiting for placement Continue CBP/CMP 04/16/25: BUN : 11 , Cr ; 1.31 , Hb: 12.6 , HCT- 32.9 Continue CBP/BMP 04/17/25 BUN 11, Creatinine: 1.62 Continue monitoring CMP IV Normal saline 1000ml 100ml/hr 04/18/25: BUN : 25, Creatinine 2.85 Continue IV normal saline UTI temperature : 102- 99.7-98.7 heart rate ; 98, BP; 101/45 ESR; 16 , Procal; 0.60, temperature: 102-99.9-97.8-98.7 CRP-4.91 plan: Chest xray shows cardiomegalay and pulmonary vascular congestion Ordered urine analysis started levofloaxin [id number] ml/hr - IV Daily started metronidazole 500mg- 100ml/hr q12h IV 04/18/25: Plan: Levofloxacin 250mg- IV 50ml/hr ( day 2) Continue metronidazole 500mg- 100ml/hr Q12h IV ( day 2) Chronic Congestive heart failure with preserved ejection fraction of 60 % Hypertension BP: 149/75 Chest x-ray : Cardiomegaly and pulmonary vascular congestion. Troponin-7, ProBNP : 144- 597 Initially patient received IV fluid however we stopped it on 04/12/2025 concern for CHF, patient is euvolemic now Continue metoprolol 50mg PO OD 04/18/25: Bp: 106/53, Pulse 91 Held metaprolol 50mg Po OD in view of soft blood pressure History of DVT and PE Held Eliquis 2.5 mg PO Q12h on 04/14/25 04/18/25: Continue eliquis 5mg PO Q12H Code Status: full Analgesia/sedation: [place] Line/tube: Peripheral GI prophylaxis: Protonix Nutrition: heart healthy Prognosis: Guarded Disposition: Continue monitoring patient in ortho floor, physical therapy recommended post acute care,lining caser SPOKE WITH [facility] VIA TELEPHONE. THEY KNOW AND HAVE ACCEPTED PATIENT. THEY WILL START INSURANCE AUTH AND ALSO SPEAK WITH PATIENT'S . WILL CONTINUE TO FOLLOW FOR DC NEEDS Chary Rey PGY1 Addendum fever, overnight hypotension, pt turning septic eric poss 2 to atn, ivf Date of Service: Apr 18, 2025 Billing Provider: MARKO SOLANO MD Common Visit Codes: [id number] INP/OBS CARE(HIGH) CHARY REY RES Apr 18, 2025 17:15 MARKO SOLANO MD Apr 19, 2025 07:41
[2025-04-18] MEDS: potassium Cl 20 mEq SR tablet PO PRN (17:34)
[2025-04-18] MEDS: K and/or MAG REPLACEMENT MC SCH (20:00)
[2025-04-19 06:00] VITALS: BP 131/74; PULSE 92; RESP 18; TEMP 98; O2SAT 92
[2025-04-19 07:50] VITALS: BP 141/76; PULSE 86
[2025-04-19 08:16] LABS: MEAN PLATELET VOLUME 9.2 FL (7.4-10.4); RED CELL DISTRIBUTION WIDTH 16.1 % (11.5-14.5)
[2025-04-19 08:39] LABS: EOSINOPHILS % (MANUAL) 1.0 % (0-6); LARGE PLATELETS FEW; LYMPHOCYTES % (MANUAL) 16.0 % (21-51); MONOCYTES % (MANUAL) 17.0 % (2-12); NEUTROPHILS % (MANUAL) 66.0 % (42-75); PLATELET ESTIMATE DECREASED
[2025-04-19 08:54] LABS: CREATININE 2.44 MG/DL (0.60-1.10); TOTAL CARBON DIOXIDE 22.0 MMOL/L (24-32); eCRCL 41 ML/MIN; eGFR 27 ML/MIN
[2025-04-19] MEDS: levoFLOXACIN-Levaquin 250mg/D5 50 ML IV SCH (09:53)
[2025-04-19 10:00] VITALS: BP 146/63; PULSE 78; RESP 14; TEMP 98.9; O2SAT 94
[2025-04-19 11:40] VITALS: PULSE 87; RESP 16; O2SAT 91
[2025-04-19 18:30] VITALS: BP 140/70; PULSE 75; RESP 15; TEMP 98.2; O2SAT 94
--- NOTE | 2025-04-19 21:24 | PROGRESS NOTE- Residence ---
Progress Note - Resident Providers to CC Resident Creating Document: CHARY REY RES ~ Antibiotic Timeout Antibiotic Ordered?: Yes Subjective Patient examined at bed side ,he is on 3 liters oxygen nasal canula during examination. patient is awake but confused Objective Vital Signs Date Time Temp Pulse Resp B/P (MAP) Pulse Ox O2 Delivery O2 Flow Rate FiO2 04/19/25 18:30 98.2 75 15 140/70 (93) 94 04/19/25 11:40 BiPAP+ 0 21 Result Diagram: 04/19/25 0703 04/19/25 0710 General: awake, confused ,lying on the bed with no acute distress HEENT: [place] conjunctiva , clear mucosa, moist mucus membrane Neck: Supple, no jvd, no lymphadenopathy , no thyromegalay Resp: equal air movement bilterally,Lungs clear to auscultation bilaterally. Heart:normal S1 and S2 , no extra heart sounds, no murmurs, no rubs Abdomen:, Soft and non tender no organomegaly, normal bowel sounds heard Extremities: No cyanosis,clubbing or edema.Missing right great toe Skin: Warm and Dry. Neurological: Upper on lower extremity strength 4/5, unstable gait Assessment Assessment 64 years old male with a past medical history of bipolar disorder, chronic back pain, bariatric sleeve, peripheral neuropathy, cognitive decline comes to ED with generalized weakness Plan Plan Metabolic encephalopathy secondary to Urinary tract infection Sepsis secondary to Urinary tract infection/cystitis R/O Stroke Sepsis criteria: Wbc: 2.9, presence of source of infection, fever, tachypnea, tachycardia. Procalciton ; 0.55 , Na:144, K: 3.2 , Ca: 8 P: Continue NS 100m/hr continue Levofloxacin 250mg- IV 50ml/hr ( day 3) Continue metronidazole 500mg- 100ml/hr Q12h IV ( day 3) monitor CBP/CMP Chronic Congestive heart failure with preserved ejection fraction of 60 % Hypertension BP: 149/75 Chest x-ray : Cardiomegaly and pulmonary vascular congestion. Troponin-7, ProBNP : 144- 597 Initially patient received IV fluid however we stopped it on 04/12/2025 concern for CHF, patient is euvolemic now Continue metoprolol 50mg PO OD 04/18/25: Bp: 106/53, Pulse 91 Held metaprolol 50mg Po OD in view of soft blood pressure 04/19/25: Bp: 140/70 HR:75 Continue Metaprolol 50 mg PO OD History of DVT and PE Held Eliquis 2.5 mg PO Q12h on 04/14/25 Continue eliquis 5mg PO Q12H h/o of peripheral neuropathy: Continue CARLOS ENRIQUE pentin 600mg PO BID H/O of Bipolar Continue Quetiapin e 300 mg PO HS H/O BPH Tamusulosin 0.8 mg HS PO Code Status: full Analgesia/sedation: [place] Line/tube: Peripheral GI prophylaxis: Protonix Nutrition: regular Prognosis: Guarded Disposition: Continue monitoring patient in ortho floor, physical therapy recommended post acute care,case mangers are actively looking for placement Chary Rey PGY1 Date of Service: Apr 19, 2025 Billing Provider: MARKO SOLANO MD Common Visit Codes: [id number] INP/OBS CARE(HIGH) CHARY REY, ROBERT Apr 19, 2025 21:24 MARKO SOLANO MD Apr 21, 2025 08:31
[2025-04-19 22:00] VITALS: BP 113/56; PULSE 67; RESP 16; TEMP 98.2; O2SAT 91
[2025-04-20] VITALS (8 sets, daily range): BP systolic 123–153; BP diastolic 57–76; PULSE 66–78; RESP 16–25; TEMP 97.5–99.5; O2SAT 93–96
[2025-04-20] MEDS: loperamide 2mg capsule PO ONE (03:36)
[2025-04-20 08:54] LABS: MEAN PLATELET VOLUME 9.1 FL (7.4-10.4)
[2025-04-20 08:57] LABS: RED CELL DISTRIBUTION WIDTH 16.1 % (11.5-14.5)
[2025-04-20 09:08] LABS: CREATININE 1.43 MG/DL (0.60-1.10); TOTAL CARBON DIOXIDE 25.5 MMOL/L (24-32); eCRCL 69 ML/MIN; eGFR 50 ML/MIN
[2025-04-20 10:05] LABS: BANDS% (MANUAL) 1.0 % (0-10); EOSINOPHILS % (MANUAL) 3.0 % (0-6); LYMPHOCYTES % (MANUAL) 20.0 % (21-51); MONOCYTES % (MANUAL) 12.0 % (2-12); NEUTROPHILS % (MANUAL) 64.0 % (42-75); PLATELET ESTIMATE DECREASED
--- NOTE | 2025-04-20 15:57 | PROGRESS NOTE- Residence ---
Progress Note - Resident Providers to CC Resident Creating Document: CHARY REY RES ~ Antibiotic Timeout Antibiotic Ordered?: Yes Subjective Patient examined at bed side ,he is on 3 liters oxygen nasal canula during examination. patient is feeling better and he is awake,alert and responding to questions Objective Vital Signs Date Time Temp Pulse Resp B/P (MAP) Pulse Ox O2 Delivery O2 Flow Rate FiO2 04/20/25 11:16 67 16 93 BiPAP+ 0 21 04/20/25 10:08 98.4 128/57 (80) Result Diagram: 04/20/25 0816 04/20/25 0816 General: awake,alert, oriented x4 ,lying on the bed with no acute distress HEENT: [place] conjunctiva , clear mucosa, moist mucus membrane Neck: Supple, no jvd, no lymphadenopathy , no thyromegalay Resp: equal air movement bilterally,Lungs clear to auscultation bilaterally. Heart:normal S1 and S2 , no extra heart sounds, no murmurs, no rubs Abdomen:, Soft and non tender no organomegaly, normal bowel sounds heard Extremities: No cyanosis,clubbing or edema.Missing right great toe Skin: Warm and Dry. Neurological: Upper on lower extremity strength 4/5, unstable gait Assessment Assessment 64 years old male with a past medical history of bipolar disorder, chronic back pain, bariatric sleeve, peripheral neuropathy,is currently evaluated for metabolic encephalopathy Plan Plan Metabolic encephalopathy secondary to Urinary tract infection Sepsis secondary to Urinary tract infection/cystitis Septic shock R/O Stroke Sepsis criteria: Wbc: 2.2 , presence of source of infection, fever, tachypnea, tachycardia. Procalciton ; 0.55 , Na:144, K: 3.3 , Ca: 7.8 P: Continue NS 100m/hr continue Levofloxacin 250mg- IV 50ml/hr ( day 4) Continue metronidazole 500mg- 100ml/hr Q12h IV ( day 4) monitor CBP/CMP Acute kidney injury rigo due to early ATN Improving Creatinine Creatine: 2.44 ---- 1.43 (trending down) , BUN 23 P Continue monitoring CBP and CMP Continue NS 100ml/hr Chronic Congestive heart failure with preserved ejection fraction of 60 % Hypertension BP: 149/75 Chest x-ray : Cardiomegaly and pulmonary vascular congestion. Troponin-7, ProBNP : 144- 597 Initially patient received IV fluid however we stopped it on 04/12/2025 concern for CHF, patient is euvolemic now Continue metoprolol 50mg PO OD 04/18/25: Bp: 106/53, Pulse 91 Held metaprolol 50mg Po OD in view of soft blood pressure 04/19/25: Bp: 140/70 HR:75 Continue Metaprolol 50 mg PO OD History of DVT and PE Continue eliquis 5mg PO Q12H h/o of peripheral neuropathy: Continue CARLOS ENRIQUE pentin 600mg PO BID H/O of Bipolar Continue Quetiapin e 300 mg PO HS H/O BPH urinary retention Tamusulosin 0.8 mg HS PO continue denny catheter Code Status: full Analgesia/sedation: [place] Line/tube: Peripheral GI prophylaxis: Protonix Nutrition: regular Prognosis: Guarded Disposition: Continue monitoring patient in ortho floor, physical therapy recommended post acute care,case mangers are actively looking for placement Chary Rey PGY1 Date of Service: Apr 20, 2025 Billing Provider: MARKO SOLANO MD Common Visit Codes: [id number] INP/OBS CARE(HIGH) CHARY REY, ROBERT Apr 20, 2025 15:57 MARKO SOLANO MD Apr 22, 2025 08:19
[2025-04-21] VITALS: PULSE 63; RESP 16; O2SAT 95
[2025-04-21 06:00] VITALS: BP 142/69; PULSE 64; RESP 16; TEMP 97.6; O2SAT 95
[2025-04-21] MEDS: levoFLOXACIN-Levaquin 500mg/D5 100 ML IV SCH (09:11)
[2025-04-21 09:47] LABS: MEAN PLATELET VOLUME 10.0 FL (7.4-10.4); RED CELL DISTRIBUTION WIDTH 16.4 % (11.5-14.5)
[2025-04-21 10:00] VITALS: BP 122/55; PULSE 65; RESP 16; TEMP 96.7; O2SAT 100
[2025-04-21 10:13] LABS: CREATININE 1.07 MG/DL (0.60-1.10); TOTAL CARBON DIOXIDE 24.1 MMOL/L (24-32); eCRCL 92 ML/MIN; eGFR 70 ML/MIN
--- NOTE | 2025-04-21 11:37 | DISCHARGE SUMMARY-Residence ---
Discharge Summary Providers to CC Resident Creating Document: CHARY REY, RES ~ Discharge Summary Admission Diagnosis: Altered level of consciousness Hospital Course DATE OF ADMISSION: 04/09/25 DATE OF DISCHARGE: 04/21/25 Discharge Diagnosis\Comment: metabolic encephalopathy UTI NEVIN due to early ATN Chronic congestive heart failure with preserved ejection fraction 60 percent Hypertension Operations\Procedures: NONE Consultants: NONE Complications: NONE Condition on DC: Stable for transfer Discharge Summary: H/P 64 years old male patient with a history of peripheral neuropathy of both feet presented to ED with weakness and confusion from past eight weeks and which is on and off but from past few days to exacerbated. patient feel tired while sleeping and sitting According to his patient was wheelchair-bound you wakes ago you to get up from the wheelchair using his hand but now he is unable to do because of weakness. Patient is wheelchair-bound from last four years after undergoing knee surgery for bilateral infected knee, this October 2024 he was admitted in the hospital for pneumonia for 3 days and four weeks later during december 2024 develop encephalopathy he had two hospitalizations for acute encephalopathy and in mid January he was hospitalized for C diff for three days after that patient developed significant weakness and confusion/fogginess. Patient had history of fall we will a suspected broken leg but home x-ray by Dr. Acharya rules out fracture, patient also has a sore on right posterior leg and patient is also expecting about sore. Patient denies no fever, chills, nausea, vomiting HOSPITAL COURSE : 64 years old with history of Peripheral neuropathy of both feet and Bipolar disorder is admitted for lightheadness and confusion. his evaluation revealed Metabolic encephalopathy secondary to Urinary tract infection Sepsis secondary to Urinary tract infection/cystitis and patient was treated with Levofloaxcin 500 mg Iv BID and metronidazole 500 mg Iv BID. He also treated his Acute kidney injury likley due to early ATN with NS 100ml/hr. his condition started improving and His Creatinene started trending and he is stable to transfer for [facility] Physical exam : General: awake,alert, oriented x4 ,lying on the bed with no acute distress HEENT: [place] conjunctiva , clear mucosa, moist mucus membrane Neck: Supple, no jvd, no lymphadenopathy , no thyromegalay Resp: equal air movement bilterally,Lungs clear to auscultation bilaterally. Heart:normal S1 and S2 , no extra heart sounds, no murmurs, no rubs Abdomen:, Soft and non tender no organomegaly, normal bowel sounds heard Extremities: No cyanosis,clubbing or edema.Missing right great toe Skin: Warm and Dry. Neurological: Upper on lower extremity strength 4/5, unstable gait Vital Signs Date Time Temp Pulse Resp B/P (MAP) Pulse Ox O2 Delivery O2 Flow Rate FiO2 04/21/25 00:00 63 16 95 BiPAP+ 0 21 04/20/25 22:00 97.6 123/60 (81) Laboratory Tests Test 04/20/25 08:16 04/21/25 07:30 04/21/25 07:50 White Blood Count 2.2 X10'3 2.3 X10'3 Red Blood Count 3.83 X10'6 4.26 X10'6 Hemoglobin 10.3 g/dl 11.5 g/dl Hematocrit 30.5 % 34.5 % Mean Corpuscular Volume 79.6 FL 80.9 FL Mean Corpuscular Hemoglobin 26.8 PG 27.0 PG Mean Corpuscular Hemoglobin Concent 33.7 g/dL 33.3 g/dL Red Cell Distribution Width 16.1 % 16.4 % Platelet Count 66 X10'3 60 X10'3 Mean Platelet Volume 9.1 FL 10.0 FL Neutrophils (%) (Auto) 51.5 % 49.5 % Lymphocytes (%) (Auto) 32.4 % 36.2 % Monocytes (%) (Auto) 13.6 % 10.0 % Eosinophils (%) (Auto) 2.2 % 3.5 % Basophils (%) (Auto) 0.3 % 0.8 % Neutrophils # (Auto) 1.1 X10'3 1.2 X10'3 Lymphocytes # (Auto) 0.7 X10'3 0.8 X10'3 Monocytes # (Auto) 0.3 X10'3 0.2 X10'3 Eosinophils # (Auto) 0.0 X10'3 0.1 X10'3 Basophils # (Auto) 0.0 X10'3 0.0 X10'3 CBC Comment Differential Total Cells Counted 100 Neutrophils % (Manual) 64.0 % Band Neutrophils % 1.0 % Lymphocytes % (Manual) 20.0 % Monocytes % (Manual) 12.0 % Eosinophils % (Manual) 3.0 % Platelet Estimate Decreased Red Blood Cell Morphology Perf Basophilic Stippling Anisocytosis 1+ Microcytosis 1+ Sodium Level 145 MMOL/L 146 MMOL/L Potassium Level 3.3 MMOL/L 4.2 MMOL/L Chloride Level 114 MMOL/L 117 MMOL/L Carbon Dioxide Level 25.5 MMOL/L 24.1 MMOL/L Anion Gap 6 5 Blood Urea Nitrogen 23 MG/DL 14 MG/DL Creatinine 1.43 MG/DL 1.07 MG/DL Estimated GFR/1.73 m2 50 ML/MIN 70 ML/MIN BUN/Creatinine Ratio 16.1 13.1 Glucose Level 100 MG/DL 96 MG/DL Calcium Level 7.8 MG/DL 8.4 MG/DL Total Bilirubin 0.7 MG/DL 0.8 MG/DL Aspartate Amino Transf (AST/SGOT) 45 U/L 60 U/L Alanine Aminotransferase (ALT/SGPT) 27 U/L 27 U/L Alkaline Phosphatase 55 IU/L 61 IU/L Total Protein 5.2 G/DL 5.7 G/DL Albumin 2.4 G/DL 2.5 G/DL Globulin 2.8 G/DL 3.2 G/DL Albumin/Globulin Ratio 0.9 0.8 Procalcitonin 0.24 NG/ML Chemistry Comments Glucometer 98 mg/dl Erythrocyte Sedimentation Rate 18 MM/HR Imaging in hospital: Chest x ray: Cardiomegaly and pulmonary vascular congestion. The lungs are otherwise clear. CT: No evidence of acute intracranial abnormality. Echo: Grossly normal LV size and wall thickness. Overall systolic function is normal. LVEF is estimated at 55-60% RV is grossly normal in size and function. The left atrium size appears normal. Probable trileaflet AV appears mildly sclerotic without stenosis. No insufficiency. Mild MV annular calcification without stenosis. Trace regurgitation. TV appears structurally normal with trace regurgitation. Normal pericardium. No effusion Discharge medications: In addition to home medication we continued new medications metronidazole 500mg PO BID levofloaxcicin 500 mg PO BID and patient is to be discharged to [facility] *Problems/Diagnosis: (1) Metabolic encephalopathy Status: Acute (2) Dehydration Status: Acute (3) Generalized weakness Status: Acute (4) Acute kidney failure (5) Congestive heart failure (CHF) Status: Chronic Total Time Spent on D/C: Up to 30 Minutes Date of Service: Apr 21, 2025 Billing Provider: MARKO SOLANO MD Common Visit Codes: 78823-TGN/OBS DISCH DAY >30min Problem Qualifiers (1) Acute kidney failure: Acute renal failure type: with acute tubular necrosis Qualified Codes: N17.0 - Acute kidney failure with tubular necrosis (2) Congestive heart failure (CHF): Heart failure type: diastolic CHARY REY, RES Apr 21, 2025 11:31 MARKO SOLANO MD Apr 22, 2025 08:19
== END 2025-04-21 13:00 | DRG 871 ==
LOC: ER 10:41 → ED HOLD 14:50 → PCU 3S 04-10 01:40 → ORTHO 4S 04-10 12:16
PROVIDERS: ADMIT Internal Medicine; ATTEND Internal Medicine
PROC: 5A09357 Assistance with Respiratory Ventilation, Less than 24 Consecutive Hours, Continuous Positive Airway Pressure (ICD-10-PCS; principal; 2025-04-10)
PROC: 5A09357 Assistance with Respiratory Ventilation, Less than 24 Consecutive Hours, Continuous Positive Airway Pressure (ICD-10-PCS; 2025-04-11)
PROC: 5A09357 Assistance with Respiratory Ventilation, Less than 24 Consecutive Hours, Continuous Positive Airway Pressure (ICD-10-PCS; 2025-04-14)
PROC: 5A09357 Assistance with Respiratory Ventilation, Less than 24 Consecutive Hours, Continuous Positive Airway Pressure (ICD-10-PCS; 2025-04-16)
PROC: 5A09357 Assistance with Respiratory Ventilation, Less than 24 Consecutive Hours, Continuous Positive Airway Pressure (ICD-10-PCS; 2025-04-17)
PROC: 5A09357 Assistance with Respiratory Ventilation, Less than 24 Consecutive Hours, Continuous Positive Airway Pressure (ICD-10-PCS; 2025-04-19)
PROC: 5A09357 Assistance with Respiratory Ventilation, Less than 24 Consecutive Hours, Continuous Positive Airway Pressure (ICD-10-PCS; 2025-04-20)
PROC: 5A09357 Assistance with Respiratory Ventilation, Less than 24 Consecutive Hours, Continuous Positive Airway Pressure (ICD-10-PCS; 2025-04-21)
DX: A41.9 Sepsis, unspecified organism (principal); G93.41 Metabolic encephalopathy; N17.0 Acute kidney failure with tubular necrosis; N39.0 Urinary tract infection, site not specified; I50.32 Chronic diastolic (congestive) heart failure; Z68.42 Body mass index [BMI] 45.0-49.9, adult; I48.91 Unspecified atrial fibrillation; E78.00 Pure hypercholesterolemia, unspecified; G62.9 Polyneuropathy, unspecified; I11.0 Hypertensive heart disease with heart failure; E66.01 Morbid (severe) obesity due to excess calories; F31.9 Bipolar disorder, unspecified; Z96.653 Presence of artificial knee joint, bilateral; Z79.899 Other long term (current) drug therapy; Z88.2 Allergy status to sulfonamides; Z79.01 Long term (current) use of anticoagulants; Z86.718 Personal history of other venous thrombosis and embolism; Z99.3 Dependence on wheelchair
CPT/HCPCS: 36415; 36600; 70450; 71045; 80048; 80053; 80061; 81001; 82140; 82550; 82803; 82948; 83605; 83735; 83880; 84100; 84145; 84439; 84443; 84484; 85007; 85018; 85025; 85651; 86140; 87040; 87077; 87081; 87088; 87186; 93005; 93308; 94640; 94760; 96365; 97110; 97161; 97530; 99285; A4314; A4620; A5200; A6154; A6212; A6213; A6258; A6449; A6590; C1758; G0378; J0696; J1956; J2270; J3490; J7030

== ENCOUNTER 2025-06-04 10:31 | Inpatient (IN) | payer BC, MEDICARE ==
[~2025-06-04] VITALS: Ht 198.1 cm; Wt 172.0 kg
[~2025-06-04 10:31] MED LIST changes: +ALBU0.63; +BUDE10.3 INH; +CHOL20004 PO; +CYAN-34 PO; -DESV50TA PO; +DIAZ5TAB4 PO; +GABA-1405 PO; -GABA300C PO; -HYDR-3686 PO; +HYDR2TAB28 PO; -LINA145C PO; -LORA1TAB PO; +METO-395 PO; -MIRT-142 PO; -MOME45CR3 TOP; +NALO25TA4 PO; +ROSU10TA72 PO; +SACC250C9 PO; +TAMS-55 PO; -TRAM50TA2 PO
--- NOTE | 2025-06-04 10:46 | Physician Documentation ---
Addendum CHIEF COMPLAINT/HPI: Patient is a 65-year-old male with a history of PE (on Eliquis), COPD (uses a nebulizer at home), sepsis, pneumonia, urinary tract infections and peripheral neuropathy who began feeling generally unwell yesterday and was noted to be hypoxic when paramedics arrived today. He is not on home oxygen but he does use CPAP at night. He lives at home and has a hospital bed. His cares for him. The home health nurse arrived this morning and noted that the patient was hypoxic and had a temperature of 100.8. REVIEW OF SYSTEMS: Constitutional: Denies chills, fatigue, fever, weight gain or weight loss. HEENT: Denies hearing loss, sinus pressure or visual changes. Respiratory: Cough with hypoxia. Cardiovascular: Denies chest pain, pain while walking (claudication), edema or palpitations. Gastrointestinal: Denies abdominal pain, blood in stool, constipation, diarrhea, heartburn, loss of appetite, nausea or vomiting. Genitourinary: Denies painful urination (dysuria), excessive amount of urine (polyuria) or urinary frequency. Metabolic/Endocrine: Denies cold intolerance, heat intolerance, excessive thirst (polydipsia) or excessive hunger (polyphagia). Neurological: Denies dizziness, extremity numbness, extremity weakness, headaches, seizures or tremors. Psychiatric: Denies anxiety or depression. Integumentary: Denies breast discharge, breast lump, hives, mole change(s), rash or skin lesion. Musculoskeletal: Denies back pain, joint pain, joint swelling or neck pain. Hematologic: Denies easily bleeding, easily bruises, lymphedema or issues with blood clots. Immunologic: Denies food allergies or seasonal allergies. PHYSICAL EXAMINATION: Vitals and nursing note reviewed. Constitutional: General: Patient is awake but not alert. Speech is clear and lucid. Appearance: Normal appearance. Patient is ill-appearing. HENT: Head: Normocephalic and atraumatic. Mouth/Throat: Mouth: Mucous membranes are moist. Pharynx: Oropharynx is clear. Eyes: General: No scleral icterus. Extraocular Movements: Extraocular movements intact. Pupils: Pupils are equal, round, and reactive to light. Neck: Supple, no Kernig or Brudzinski sign. Cardiovascular: Rate and Rhythm: Normal rate and regular rhythm. Heart sounds: No murmur heard. Pulmonary: Effort: No respiratory distress. Breath sounds: Bilateral rhonchi. Abdominal: General: There is no distension. Palpations: There is no fluid wave. Tenderness: There is no abdominal tenderness. There is no guarding. Musculoskeletal: General: No swelling or deformity. Skin: Coloration: Skin is not jaundiced. Findings: No erythema or rash. EKG medically necessary in the evaluation of shortness of breath and interpreted by me at the time of patient evaluation. Rhythm is sinus rhythm with a rate of 83. Impression: Normally EKG. ECG reading does not show any acute signs of obvious ischemia. No evidence of A- V block. No short WI, delta waves, or wide QRS concerning for Erhia-Nlwjvrnne-Rofke. No long QT events on my read. I do not see evidence of Brugada with ST elevations in V1 through V3. No epsilon wave noted. No low voltage suggestive of pericardial effusion. No right ventricular strain pattern. MEDICAL DECISION MAKING: This 65-year-old male with a history of PE presents with a temperature at home of 100.8, hypoxia room air and shortness of breath. There is a possibility of pneumonia on the chest x-ray and I have started him on fluids, bronchodilators and antibiotics. He also has NVEIN and I have ordered a bladder scan in addition to the fluids. I am also obtaining a CTA because of his history of PE. He will require admission. Departure Disposition: ADMITTED INPATIENT Admitted to Inpatient Unit: to hospitalist Admission Level of Care: Neuro with Tele Impression: Primary Impression: Shortness of breath Additional Impression: Acute kidney injury Condition: DANIELLE Messer MD Jun 04, 2025 10:46
--- NOTE | 2025-06-04 11:09 | RADIOLOGY REPORT ---
CHEST RADIOGRAPH Indication: Cough Technique: Single frontal view of the chest was obtained COMPARISON: DI CHEST,SINGLE VIEW on DOS: 04/17/25, DI CHEST,SINGLE VIEW on DOS: 04/09/25 FINDINGS: Subcutaneous pacing device in the left chest wall. Cardiac silhouette is mildly enlarged. Mild diffuse prominence of the pulmonary vasculature with hazy opacity throughout both lungs. Trace left-sided pleural effusion with mild left basilar atelectasis / consolidation. Bones and soft tissues demonstrate no significant abnormality. IMPRESSION: Cardiomegaly with pulmonary venous congestion and likely early edema.
[2025-06-04 11:48] LABS: MEAN PLATELET VOLUME 8.1 FL (7.4-10.4); RED CELL DISTRIBUTION WIDTH 16.6 % (11.5-14.5)
[2025-06-04 11:59] LABS: INR 1.2 INR
[2025-06-04 12:12] LABS: CREATININE 1.56 MG/DL (0.60-1.10); PRO BRAIN NATRIURETIC PEPTIDE 411 PG/ML (0-125); TOTAL CARBON DIOXIDE 27.1 MMOL/L (24-32); eCRCL 61 ML/MIN; eGFR 45 ML/MIN
[2025-06-04 12:26] LABS: ETHANOL < 10 MG/DL (<10)
[2025-06-04] MEDS: azithromycin/NS 500mg/250ml 250 ML IV ONE (13:19)
[2025-06-04] MEDS: normal saline 1000ml 1,000 ML IV ONE (13:19)
--- NOTE | 2025-06-04 15:00 | ELECTROCARDIOGRAPH REPORT ---
[facility] Test Date: 2025-06-04 Test Time: 11:20:55 Pat Name: NILDA MONTILLA Department: EMERGENCY ROOM Room: Gender: M Forensic Audit Expert: : [id number] Requested By: DANIELLE ZHU Order Number: [id number] Reading MD: Measurements Intervals [place] Rate: 83 P: 13 [place]: 185 QRS: 42 QRSD: 101 T: 39 QT: 365 QTc: 429 Interpretive Statements Sinus rhythm Please click the below link to view image of tracing.
[2025-06-04] MEDS: ipratropium/albuterol 3ml nebule NEB STA (15:10)
[2025-06-04 15:11] VITALS: PULSE 73; RESP 18; O2SAT 97
[2025-06-04 15:22] VITALS: PULSE 71; RESP 18; O2SAT 97
[2025-06-04] MEDS: CEFEPIME 2gm in D5W 50mL 50 ML IV STA (15:23)
--- NOTE | 2025-06-04 15:26 | RADIOLOGY REPORT ---
CLINICAL HISTORY: Hypoxia, SOB, h/o PE TECHNIQUE: CT angiogram of the chest was performed with and without intravenous contrast. 3D reconstructed MIP images were created and archived on the PACS system under concurrent radiologist supervision. This exam was performed according to our departmental dose optimization program. Up-to-date CT equipment and radiation dose reduction techniques are utilized as appropriate. CTDI 116 DLP 1021 COMPARISON: None FINDINGS: Chest: There was adequate opacification of the pulmonary artery tree. However, evaluation is severely limited due to patient breathing artifact. There is no filling defect to suggest acute pulmonary embolism. The main pulmonary artery dilated, a new 3.9 cm. The thoracic aorta is normal in course and caliber. There are no significant atherosclerotic calcifications. The heart is borderline enlarged in size. No pericardial effusion is seen. No enlarged mediastinal, hilar, or axillary lymph node is present. The central airways are patent. There is no bronchiectasis. There is no suspicious pulmonary nodule or area of consolidation. There are mild atelectatic changes at both lung bases. There is no pleural effusion present. Other: The visualized upper abdomen demonstrates diffuse hepatic steatosis and moderate splenomegaly with the spleen measuring 15.8 cm in long axis. The liver contour is slightly nodular. There has been gastric sleeve surgery. With a No acute osseous abnormality is identified. There is a partially imaged left shoulder arthroplasty. IMPRESSION: Severely limited exam with no evidence for acute pulmonary embolism. No aortic dissection. No pneumonia. Pulmonary arterial hypertension. Moderate splenomegaly with hepatic steatosis. Slightly nodular liver contour, raising possibility of cirrhosis. Gastric sleeve surgery.
--- NOTE | 2025-06-04 16:12 | HISTORY AND PHYSICAL ---
History & Physical Providers to CC ~ History of Present Illness Reason for Admit\Complaint: Fever and low O2 sat History of Present Illness 65 years old male who is accompanied by his , presented to the ER from home after a home health nurse found that patient was having low oxygen saturation to the 87% and had a temp of 100.8. reports that patient was here six weeks ago, discharged to [facility] a rehab facility where he was there for four weeks and has been home for two weeks. also noticed that patient has been coughing since 3:30 a.m.. Patient denies having any chest pain palpitations orthopnea PND. Denies having any focal neurological symptoms. No history of any hematuria dysuria frequency urgency. No melena or bright red blood per rectum. Patient denies having any hemoptysis. He has been admitted for further evaluation of his hypoxia and fever. Allergies: Coded Allergies: Sulfa (Sulfonamide Antibiotics) (Verified Allergy, Unknown, 04/16/15) daptomycin (Verified Allergy, Unknown, 04/09/25) piperacillin (Verified Allergy, Unknown, 04/09/25) Home Medications Home Medications Active Reported Dilaudid* (Hydromorphone HCl) 2 Mg Tablet 1 Tab PO TID 30 Days Diazepam 5 Mg Tablet 0.5 Tab PO Q12H 30 Days Flomax* (Tamsulosin HCl) 0.4 Mg Cap.sr.24h 2 Cap PO HS 30 Days Probiotic (Saccharomyces Boulardii) 250 Mg Capsule 1 Cap PO DAILY 14 Days Vitamin B-12 (Cyanocobalamin (Vitamin B-12)) 1,000 Mcg Capsule 1 Cap PO DAILY 30 Days Vitamin D (Cholecalciferol) 2,000 Unit Tablet 1 Tab PO DAILY 30 Days Seroquel* (Quetiapine Fumarate) 100 Mg Tablet 3 Tab PO HS Gabapentin 600 Mg Tablet 1 Tab PO BID 30 Days Albuterol Sulfate (Albuterol) 0.63 Mg/3 Ml Vial.neb 3 Ml Q4H PRN Movantik (Naloxegol Oxalate) 25 Mg Tablet 1 Tab PO QAM Breyna 80-4.5 Mcg Inhaler (Budesonide/Formoterol Fumarate) 80 Mcg-4.5 Mcg/Actuation Hfa.aer.ad 2 Puffs INH BID Rosuvastatin Calcium 10 Mg Tablet 1 Tab PO DAILY Metoprolol Succinate 25 Mg Tab.sr.24h 1 Tab PO DAILY Lamotrigine 200 Mg Tablet 2 Tab PO DAILY 30 Days Buspirone HCl 15 Mg Tablet 2 Tab PO Q12H 30 Days Pantoprazole Sodium 40 Mg Tablet. 1 Tab PO DAILY 30 Days Eliquis (Apixaban) 2.5 Mg Tablet 1 Tab PO Q12H 30 Days Past Surgical History Surgical History Comment Bilateral knee replacement C-spine 3-7 laminectomy Gastric sleeve Left shoulder replacement Family History Family History: Family history was reviewed; no changes noted. Past Social History Social History Comment Does not smoke drink or do any drugs Health Maintenance Health Maintenance Current on his immunizations ROS ROS All other systems are reviewed and are negative except as mentioned in HPI Exam Vitals: Vital Signs Date Time Temp Pulse Resp B/P (MAP) Pulse Ox O2 Delivery O2 Flow Rate FiO2 06/04/25 15:22 71 18 97 Nasal Cannula* 4 36 06/04/25 11:06 99.3 118/63 (81) General: Morbidly obese male in no acute distress somnolent. Opens eyes to his name HEENT: Normocephalic, atraumatic, extraocular movements are intact. Neck: Supple, no JVD Chest: Clear to auscultation anteriorly, no wheezes crackles or rhonchi Cardiovascular: Regular rate rhythm, no murmur or gallop rub Abdomen: Soft, nontender, pendulous, exam limited Extremities: 1+ edema Central Nervous System: Grossly nonfocal Diagnostic Data Last Recorded Lab Results: 06/04/25 1138 06/04/25 1138 Diagnostic Data: Laboratory Tests Test 06/04/25 11:38 Prothrombin Time 12.3 SECONDS (9.0-12.0) H INR International Normalized Ratio 1.2 INR Coagulation Comments Additional Plan 65 years old male presented to the ER for evaluation of fever and hypoxia. # acute hypoxic respiratory failure: Supplemental oxygen # fever:? Etiology. We will check UA. Start on empiric antibiotics. ? Aspiration pneumonia # history of PE: Continue Eliquis # Bilateral diffuse inspiratory and expiratory rhonchi without exacerbation: Inhaled bronchodilators p.r.n. # Romel/CKD: Continue monitor creatinine # history of gastric sleeve surgery: No acute issues . Monitor electrolytes #code status: Patient wishes to be full code Date of Service: Jun 04, 2025 Billing Provider: JARROD ISIDRO MD Common Visit Codes: [id number] INP/OBS CARE (HIGH) JARROD ISIDRO MD Jun 04, 2025 16:12
[2025-06-04] MEDS ORDERED: potassium Cl 20 mEq SR tablet PO PRN ×2 (17:40)
[2025-06-04] MEDS ORDERED: magnesium Cl slow-release 64mg tablet PO PRN (17:40)
[2025-06-04] MEDS ORDERED: HYDROcodone/acetaminophen 5mg/325mg tablet PO PRN (17:40)
[2025-06-04] MEDS ORDERED: ondansetron/PF 4mg/2ml inj IV PRN (17:40)
[2025-06-04] MEDS ORDERED: magnesium sulf-water 4G/100mL 100 ML IV PRN (17:40)
[2025-06-04] MEDS ORDERED: magnesium sulf-water 2g/50mL 50 ML IV PRN (17:40)
[2025-06-04] MEDS ORDERED: potassium Cl 40MEQ/1/2NS 520ml 520 ML IV PRN (17:40)
[2025-06-04 18:00] VITALS: BP 177/76; PULSE 76; RESP 13; TEMP 98.3; O2SAT 96
[2025-06-04] MEDS: K and/or MAG REPLACEMENT MC SCH (18:52)
[2025-06-04] MEDS ORDERED: APIX5TAB3 PO (19:03)
[2025-06-04] MEDS ORDERED: PANT-47 PO (19:09)
[2025-06-04] MEDS: docusate sod 100mg capsule PO SCH (19:50)
[2025-06-04] MEDS: hydrALAZINE 20mg/ml inj. IV PRN (19:51)
[2025-06-04] MEDS: heparin, porcine 5000 units/ml vial SQ SCH (19:56)
[2025-06-04 20:00] VITALS: RESP 18; O2SAT 94
[2025-06-04 22:00] VITALS: BP 142/66; PULSE 83; RESP 18; TEMP 97.8; O2SAT 94
[2025-06-05] VITALS (8 sets, daily range): BP systolic 136–176; BP diastolic 57–89; PULSE 71–94; RESP 10–16; TEMP 96.6–98.4; O2SAT 91–98
[2025-06-05 06:47] LABS: MEAN PLATELET VOLUME 8.3 FL (7.4-10.4); RED CELL DISTRIBUTION WIDTH 16.8 % (11.5-14.5)
[2025-06-05 07:03] LABS: CREATININE 1.28 MG/DL (0.60-1.10); TOTAL CARBON DIOXIDE 27.4 MMOL/L (24-32); eCRCL 74 ML/MIN; eGFR 56 ML/MIN
[2025-06-05] MEDS: levoFLOXACIN-Levaquin 750MG/D5 150 ML IV SCH (09:05)
[2025-06-05] MEDS: lactobacillus rhamnosus 10,000 MMU CELLS/CAPSULE PO SCH (09:05)
[2025-06-05] MEDS: metoprolol succinate 25mg (24-HOUR) SR. Tablet PO SCH (09:05)
--- NOTE | 2025-06-05 12:01 | PROGRESS NOTE ---
Daily Progress Note Providers to CC ~ Antibiotic Timeout Antibiotic Ordered?: Yes Subjective Patient reports feeling better. Wants to go home. Objective Vital Signs Date Time Temp Pulse Resp B/P (MAP) Pulse Ox O2 Delivery O2 Flow Rate FiO2 06/05/25 08:00 16 98 Room Air 06/05/25 07:05 98.3 90 176/89 (118) 4.0 06/04/25 20:00 36 Result Diagram: 06/05/2529 06/05/2529 Morbidly obese male with a BMI of 43.8 HEENT normocephalic atraumatic extraocular movements are intact Neck supple, no JVD Chest: Clear to auscultation, no wheezes crackles rhonchi Heart: Regular rate rhythm, Abdomen is distended, pendulous, no organomegaly Extremities no cyanosis clubbing, trace edema Neuro exam difficult to assess, grossly nonfocal. Patient barely moves Coagulation Studies Laboratory Tests Test 06/04/25 11:38 Prothrombin Time 12.3 SECONDS (9.0-12.0) H INR International Normalized Ratio 1.2 INR Coagulation Comments Other Results Medications reviewed Problem\Assessment\Plan 65 years old male presented to the ER after home health nurse found patient to be hypoxic with an O2 sat of 87% as well as febrile. #: Blood cultures positive for Gram-positive cocci in clusters. Continue IV antibiotics # probable pneumonia/URI: Patient is also at high-risk of aspiration. Continue IV antibiotics as noted above # #history of PE: Continue Eliquis # COPD without exacerbation: Continue inhaled bronchodilators #history of gastric sleeve surgery: No acute issues. Monitor electrolytes # hyperlipidemia: Continue rosuvastatin Lb and BPH: Continue tamsulosin #psych issues: Continue Seroquel and BuSpar. #code status: Full code Date of Service: Jun 05, 2025 Billing Provider: JARROD ISIDRO MD Common Visit Codes: [id number] INP/OBS CARE(HIGH) JARROD ISIDRO MD Jun 05, 2025 12:01
[2025-06-05] MEDS: HYDROcodone/acetaminophen 10/325mg tab PO PRN (19:44)
[2025-06-05] MEDS: pantoprazole 40mg Tablet.DR PO SCH (20:00)
[2025-06-05] MEDS: busPIRone 15mg tablet PO SCH (20:01)
[2025-06-05 22:01] LABS: LEUKOCYTE ESTERASE ,URINE NEGATIVE (Neg); NITRITES, URINE NEGATIVE (Neg); OCCULT BLOOD,URINE SMALL (Neg)
[2025-06-05 22:03] LABS: URINE AMPHETAMINE SCREEN NEGATIVE (Neg); URINE BARBITUATE SCREEN NEGATIVE (Neg); URINE BENZODIAZEPINES SCREEN POSITIVE (Neg); URINE CANNABINOID SCREEN NEGATIVE (Neg); URINE COCAINE SCREEN NEGATIVE (Neg); URINE METHADONE SCREEN NEGATIVE (Neg); URINE OPIATE SCREEN POSITIVE (Neg); URINE PHENCYCLIDINE SCREEN NEGATIVE (Neg)
[2025-06-05 22:12] LABS: UA COLLECTION TYPE CLN CATCH MIDSTREAM
[2025-06-05 22:24] LABS: SQUAMOUS EPITHELIAL CELL,UR FEW /LPF (FEW)
[2025-06-06 02:00] VITALS: BP 150/61; PULSE 68; RESP 10; TEMP 96.4; O2SAT 95
[2025-06-06 06:00] VITALS: BP 170/72; PULSE 70; RESP 15; TEMP 98; O2SAT 94
[2025-06-06 07:30] LABS: MEAN PLATELET VOLUME 8.2 FL (7.4-10.4); RED CELL DISTRIBUTION WIDTH 17.0 % (11.5-14.5)
[2025-06-06 07:49] LABS: CREATININE 1.15 MG/DL (0.60-1.10); TOTAL CARBON DIOXIDE 26.6 MMOL/L (24-32); eCRCL 83 ML/MIN; eGFR 64 ML/MIN
[2025-06-06 08:00] VITALS: RESP 14; O2SAT 95
[2025-06-06] MEDS ORDERED: LEVO-65 PO (12:27)
--- NOTE | 2025-06-06 19:37 | DISCHARGE SUMMARY ---
Discharge Summary Providers to CC ~ Discharge Summary Admission Diagnosis: Shortness of breath Hospital Course DATE OF ADMISSION: June 04, 2025 DATE OF DISCHARGE: June 06, 2025 CBC testing done on October 07, 2024 WBC 6.4 hemoglobin 12.1 hematocrit 36.4 platelet count 137. Serum chemistry done on June 06, 2025 sodium 145 potassium 3.6 creatinine 1.15 GFR 64 total bilirubin 1.5 rest of the liver enzymes normal proBNP 411. Lactic acid 2.0. One of the blood culture showed Gram-positive cocci likely contamination in preliminary report. CTA CHEST PEIMPRESSION: Severely limited exam with no evidence for acute pulmonary embolism. No aortic dissection. No pneumonia. Pulmonary arterial hypertension. Moderate splenomegaly with hepatic steatosis. Slightly nodular liver contour, ra ising possibility of cirrhosis. Gastric sleeve surgery. CHEST,SINGLE VIEW IMPRESSION: Cardiomegaly with pulmonary venous congestion and likely early edema. Discharge Diagnosis\Comment: # probable pneumonia # #history of PE: # COPD without exacerbation: #history of gastric sleeve surgery: # hyperlipidemia: # BPH: #chronic psych issues: Operations\Procedures: None Consultants: None Complications: None Condition on DC: Stable New Medications: Levofloxacin (Levofloxacin) 500 Mg Tablet 500 MG PO DAILY for 5 Days, #5 TAB Continued Medications: Albuterol Sulfate (Albuterol Sulfate) 0.63 Mg/3 Ml Vial.neb 3 ML Q4H PRN for SOB or wheezing Apixaban (Eliquis) 5 Mg Tablet 5 MG PO BID, TAB Buspirone HCl (Buspirone HCl) 15 Mg Tablet 2 TAB PO Q12H for 30 Days, #60 TAB Cholecalciferol (Vitamin D) 2,000 Unit Tablet 1 TAB PO DAILY for 30 Days, #30 TAB 0 Refills Cyanocobalamin (Vitamin B-12) (Vitamin B-12) 1,000 Mcg Capsule 1 CAP PO DAILY for 30 Days, #30 CAP 0 Refills Gabapentin (Gabapentin) 600 Mg Tablet 1 TAB PO BID for 30 Days, #90 TAB 0 Refills Lamotrigine (Lamotrigine) 200 Mg Tablet 2 TAB PO DAILY for 30 Days, #60 TAB Metoprolol Succinate (Metoprolol Succinate) 25 Mg Tab.sr.24h 1 TAB PO DAILY Naloxegol Oxalate (Movantik) 25 Mg Tablet 1 TAB PO QAM Pantoprazole Sodium (PROTONIX tablet) 40 Mg Tablet.dr 1 TAB PO HS for 30 Days, #30 TAB 0 Refills Quetiapine Fumarate* (Seroquel*) 100 Mg Tablet 3 TAB PO HS, TAB Rosuvastatin Calcium (Rosuvastatin Calcium) 10 Mg Tablet 1 TAB PO DAILY for cholesterol Saccharomyces Boulardii (Probiotic) 250 Mg Capsule 1 CAP PO DAILY for 14 Days, #14 CAP 0 Refills Tamsulosin Hcl* (Flomax*) 0.4 Mg Cap.sr.24h 2 CAP PO HS for 30 Days, #30 CAP Discharge Summary: 65 years old male presented to the ER after home health nurse found patient to be hypoxic with an O2 sat of 87% as well as febrile. During hospitalization patient was treated for # probable pneumonia/URI: Patient is also at high-risk of aspiration. Continued IV antibiotics # history of PE: Continued Eliquis # COPD without exacerbation: Continue inhaled bronchodilators #history of gastric sleeve surgery: No acute issues. Monitor electrolytes # hyperlipidemia: Continue rosuvastatin # BPH: Continue tamsulosin # chronic psych issues: Continue Seroquel and BuSpar. # bed-bound status since couple of months as per #code status: Full code Patient is feeling better he has been afebrile and getting discharged home in stable condition with his . As per patient is bed-bound since couple of months and she has the hospital bed Britni lift and rest of the equipment needed to take care of patient at home she is okay to get patient discharged home , patient already has home health services to take care of him in his house. Patient is seen and examined on the day of discharge. All labs, diagnostic workup and discharge plan discussed with patient and family members in detail before her discharge. All questions and queries answered to the best of my professional medical knowledge. I heard patient's concerns and address appropriately. cook manager involved in patient's discharge plan. Discharge instructions provided to the patientplease follow up with PCP in 1-2 weeks , provide fall precaution documents . plan to cut down dose for seroquel after discussing with PCP .read side effects of all your medications and discuss with pcp . continue PT in outpatient setting . General-patient not in any acute distress, alert awake oriented, chronically ill-appearing, age-appropriate/looks comfortable, morbidly obese HEENT-atraumatic normocephalic, neck supple without elevated JVD, no thyromegaly or carotid bruit. No lymphadenopathy bilaterally. Eyes-no icterus or pallor seen in eyes Chest-clear to auscultation bilaterally, breathing nonlabored no tachypnea, no wheezing, no crepitation, no crackles. Heart-S1-S2 normal, regular heart rate no murmur Abdomen bowel sounds positive on auscultation, soft nondistended nontender no guarding, no rigidity Skin no active skin rash Neurology-grossly intact, nonfocal alert awake oriented Extremity- no pedal edema able to move all 4 extremities Psychiatry - patient is not confused or agitated cooperated during physical examination *Problems/Diagnosis: (1) Shortness of breath Status: Acute Total Time Spent on D/C: > 30 Minutes Date of Service: Jun 06, 2025 Billing Provider: KIANA ESPINO MD Common Visit Codes: 07022-JYB/OBS DISCH DAY >30min KIANA ESPINO MD Jun 06, 2025 19:33
== END 2025-06-06 19:20 | disposition home health service (06) | DRG 190 ==
LOC: ER 10:31 → ED HOLD 14:07 → EDBEDREQ 16:31 → PCU 3S 17:40
PROVIDERS: ADMIT Internal Medicine; ATTEND Internal Medicine
PROC: B32T1ZZ Computerized Tomography (CT Scan) of Left Pulmonary Artery using Low Osmolar Contrast (ICD-10-PCS; principal; 2025-06-04)
PROC: B3201ZZ Computerized Tomography (CT Scan) of Thoracic Aorta using Low Osmolar Contrast (ICD-10-PCS; 2025-06-04)
PROC: B32S1ZZ Computerized Tomography (CT Scan) of Right Pulmonary Artery using Low Osmolar Contrast (ICD-10-PCS; 2025-06-04)
DX: J44.0 Chronic obstructive pulmonary disease with (acute) lower respiratory infection (principal); J18.9 Pneumonia, unspecified organism; J96.01 Acute respiratory failure with hypoxia; N17.9 Acute kidney failure, unspecified; E78.5 Hyperlipidemia, unspecified; N40.0 Benign prostatic hyperplasia without lower urinary tract symptoms; N18.9 Chronic kidney disease, unspecified; Z20.822 Contact with and (suspected) exposure to COVID-19; Z96.612 Presence of left artificial shoulder joint; G62.9 Polyneuropathy, unspecified; Z96.653 Presence of artificial knee joint, bilateral; Z86.711 Personal history of pulmonary embolism; Z88.0 Allergy status to penicillin; Z74.01 Bed confinement status; Z79.01 Long term (current) use of anticoagulants; Z88.2 Allergy status to sulfonamides; Z79.899 Other long term (current) drug therapy
CPT/HCPCS: 36415; 71045; 71275; 80048; 80053; 80305; 80320; 81001; 83605; 83735; 83880; 84484; 85025; 85610; 87040; 87077; 87081; 87186; 87811; 93005; 94640; 94760; 96365; 96367; 99285; A4615; A6250; A6590; C1758; G0378; J0360; J0456; J0692; J1644; J1956; J2919; J7030; J7040; Q9967